=== PATIENT | female | born 1945 | race Caucasian/White ===

== ENCOUNTER → 2017-12-24 | Outpatient (CLI) | payer MEDICARE ==
--- NOTE | 2017-12-24 16:35 | BD ---
EXAMINATION TYPE: Axial Bone Density DATE OF EXAM: 12/24/2017 COMPARISON: 07/12/2015 CLINICAL HISTORY: 72-year-old female with known osteopenia Height: 60.5 IN Weight: 181.6 LBS FRAX RISK QUESTIONS: Family History (Parent hip fracture): YES MOTHER History of Fracture in Adulthood: YES RT WRIST AGE 57 Secondary Osteoporosis: 3. Menopause before 45: YES AGE 40 RISK FACTORS HISTORY OF: History of Wrist Fracture: RT WRIST When: AGE 57 Active: YES Postmenopausal woman: AGE 45 Take estrogen and/or progesterone medications: NOT NOW How long: TOOK HORMONES FOR 6 MONTHS AT AGE 40 MEDICATIONS: Thyroid Medications: YES Which medication: Levothyroxine How Lon YRS Additional Medications: LEVOTHYROXINE, LIPITOR, IMIPRAMINE, EXAM MEASUREMENTS: Bone mineral densitometry was performed using the [employer] System. Bone mineral density as measured about the Lumbar spine is: ----- L1-L4(G/cm2): 1.026 T Score Values are as follows: ----- L2: -2.3 ----- L3: -1.1 ----- L4: -0.6 ----- L1-L4: -1.3 Bone mineral density has: Increased 1.1% since study of: 07/12/2015 Bone mineral density about the R hip (g/cm2): 0.705 Bone mineral density about the L hip (g/cm2): 0.704 T Score values are as follows: -----R Neck: -2.4 -----L Neck: -2.4 -----R Total: -1.7 -----L Total: -1.8 Bone mineral density has: Increased 0.3% since study of: 07/12/2015 IMPRESSION: Osteopenia (T Score between -2.5 and -1). There is slightly increased risk of fracture and the patient may be considered for treatment. Re-Screen 2-5 years. NOTE: T-SCORE=SD OF THE YOUNG ADULT MEAN.
--- NOTE | 2017-12-26 09:43 | MM ---
Reason for exam: screening (asymptomatic). Last mammogram was performed 2 years and 5 months ago. History: Patient is postmenopausal, has history of endometrial cancer at age 40, and had first child at age 37. Physical Findings: A clinical breast exam by your physician is recommended on an annual basis and results should be correlated with mammographic findings. MG 3D Screening Mammo W/Cad Bilateral CC and MLO view(s) were taken. Prior study comparison: July 12, 2015, bilateral MG 3d screening mammo w/cad. June 03, 2013, bilateral digital screening mammo w/CAD. There are scattered fibroglandular densities. No significant changes when compared with prior studies. ASSESSMENT: Negative, BI-RAD 1 RECOMMENDATION: Routine screening mammogram of both breasts in 1 year.
== END | disposition home or self-care (01) ==
LOC: RADMAMWWP 11:41
PROVIDERS: ATTEND Internal Medicine
DX: Z12.31 Encounter for screening mammogram for malignant neoplasm of breast (principal); M85.80 Other specified disorders of bone density and structure, unspecified site
CPT/HCPCS: 77063; 77067; 77080

== ENCOUNTER → 2019-04-22 | Outpatient (CLI) | payer MEDICARE ==
--- NOTE | 2019-04-23 09:08 | MM ---
Reason for exam: screening (asymptomatic). Last mammogram was performed 1 year and 4 months ago. History: Patient is postmenopausal, has history of endometrial cancer at age 40, and had first child at age 37. Physical Findings: A clinical breast exam by your physician is recommended on an annual basis and results should be correlated with mammographic findings. MG 3D Screening Mammo W/Cad Bilateral CC and MLO view(s) were taken. Prior study comparison: December 24, 2017, bilateral MG 3d screening mammo w/cad. July 12, 2015, bilateral MG 3d screening mammo w/cad. The breast tissue is heterogeneously dense. This may lower the sensitivity of mammography. Benign appearing bilateral calcifications. No suspicious abnormality. No significant changes when compared with prior studies. ASSESSMENT: Benign, BI-RAD 2 RECOMMENDATION: Routine screening mammogram of both breasts in 1 year.
== END | disposition home or self-care (01) ==
LOC: RADMAMWWP 14:53
PROVIDERS: ATTEND Family Medicine
DX: Z12.31 Encounter for screening mammogram for malignant neoplasm of breast (principal)
CPT/HCPCS: 77063; 77067

== ENCOUNTER → 2020-06-29 | Outpatient (CLI) | payer MEDICARE ==
--- NOTE | 2020-06-29 16:12 | BD ---
EXAMINATION TYPE: Axial Bone Density DATE OF EXAM: 06/29/2020 COMPARISON: 12/24/2017 CLINICAL HISTORY: Z 78.0 Height: 60.7 IN Weight: 188 LBS FRAX RISK QUESTIONS: Family History (Parent hip fracture): MOTHER History of Fracture in Adulthood: AGE 57 RT WRIST Secondary Osteoporosis: 3. Menopause before 45: PARTIAL HYST AGE 40 RISK FACTORS HISTORY OF: History of Wrist Fracture: RT WRIST AGE 57 Active: MODERATE Diet low in dairy products/other sources of calcium: YES Postmenopausal woman: PARTIAL HYST AGE 40 Take estrogen and/or progesterone medications: NOT NOW TOOK FOR 1 YEAR MEDICATIONS: Thyroid Medications: YES Which medication: Levothyroxine How Lon+ YEARS Additional Medications: VIT D, LEVOTHYROXINE, CHOLESTEROL MEDS, IMIMIPRAMINE, Additional History: CERVICAL CANCER NO RADIATION OR CHEMO EXAM MEASUREMENTS: Bone mineral densitometry was performed using the [employer] System. Bone mineral density as measured about the Lumbar spine is: ----- L1-L4(G/cm2): 1.041 T Score Values are as follows: ----- L2: -2.0 ----- L3: -0.7 ----- L4: -0.8 ----- L1-L4: -1.2 Bone mineral density has: Increased 0.9% since study of: 12/24/2017 Bone mineral density about the R hip (g/cm2): 0.705 Bone mineral density about the L hip (g/cm2): 0.709 T Score values are as follows: -----R Neck: -2.4 -----L Neck: -2.4 -----R Total: -1.7 -----L Total: -1.7 Bone mineral density has: Increased 0.5% since study of: 12/24/2017 IMPRESSION: Osteopenia (T Score between -2.5 and -1). There is slightly increased risk of fracture and the patient may be considered for treatment. Re-Screen 2-5 years. NOTE: T-SCORE=SD OF THE YOUNG ADULT MEAN.
--- NOTE | 2020-06-30 11:17 | MM ---
Reason for exam: screening (asymptomatic). Last mammogram was performed 1 year and 2 months ago. History: Patient is postmenopausal, has history of endometrial cancer at age 40, has history of other cancer at age 40, and had first child at age 37. Physical Findings: A clinical breast exam by your physician is recommended on an annual basis and results should be correlated with mammographic findings. MG 3D Screening Mammo W/Cad Bilateral CC and MLO view(s) were taken. Prior study comparison: April 22, 2019, bilateral MG 3d screening mammo w/cad. December 24, 2017, bilateral MG 3d screening mammo w/cad. The breast tissue is heterogeneously dense. This may lower the sensitivity of mammography. Finding #1: There is a 5 mm circumscribed oval mass in the upper quadrant, anterior position of the right breast. Finding #2: There are typically benign round calcifications in both breasts. Increase in size since April 22, 2019 and December 24, 2017. ASSESSMENT: Incomplete: need additional imaging evaluation, BI-RAD 0 RECOMMENDATION: Ultrasound of the right breast. [facility] will attempt to contact patient to return for ultrasound.
== END | disposition home or self-care (01) ==
LOC: RADMAMWWP 08:40
PROVIDERS: ATTEND Family Medicine
DX: Z12.31 Encounter for screening mammogram for malignant neoplasm of breast (principal); M85.80 Other specified disorders of bone density and structure, unspecified site; Z78.0 Asymptomatic menopausal state
CPT/HCPCS: 77063; 77067; 77080

== ENCOUNTER → 2020-07-09 | Outpatient (CLI) | payer MEDICARE ==
--- NOTE | 2020-07-09 14:06 | USB ---
Reason for exam: additional evaluation requested from abnormal screening. History: Patient is postmenopausal, has history of endometrial cancer at age 40, has history of other cancer at age 40, and had first child at age 37. Physical Findings: Nurse did not find any significant physical abnormalities on exam. US Breast Workup Limited RT Technologist: Mervat Dahl Right limited breast ultrasound including focal area of concern, retroareolar and axilla demonstrates a 0.3 x 0.3 x 0.3cm circular, cystic lesion at 9 o'clock and a duct at the posterior nipple. These results were verbally communicated with the patient and result sheet given to the patient on 07/09/20. ASSESSMENT: Probably benign, BI-RAD 3 RECOMMENDATION: Ultrasound of the right breast in 6 months.
== END | disposition home or self-care (01) ==
LOC: RADUSWWP 12:45
PROVIDERS: ATTEND Family Medicine
DX: R92.8 Other abnormal and inconclusive findings on diagnostic imaging of breast (principal)

== ENCOUNTER → 2020-08-17 | Outpatient (CLI) | payer MEDICARE | END | disposition home or self-care (01) | LOC: LABWHC1 10:15 | PROVIDERS: ATTEND Nurse Practitioner Family | DX: U07.1 COVID-19 (principal) | CPT/HCPCS: 36415; 86769 ==

== ENCOUNTER → 2020-12-14 | Outpatient (CLI) | payer MEDICARE ==
--- NOTE | 2020-12-15 09:37 | USB ---
Reason for exam: follow-up at short interval from prior study. History: Patient is postmenopausal, has history of endometrial cancer at age 40, has history of other cancer at age 40, and had first child at age 37. Physical Findings: Nurse did not find any significant physical abnormalities on exam. US Breast Limited RT Right limited breast ultrasound including focal area of concern, retroareolar and axilla demonstrates a 0.3 x 0.2 x 0.3cm oval, cystic lesion at 9 o'clock, a 0.3 x 0.4 x 0.4cm oval, taller than wide, complex, cystic lesion at 11 o'clock, probably benign, correlates with mammographic nodule, retroareolar ductal dilation at the posterior nipple and a 1.4 x 1.2 x 0.7cm reactive appearing lymph node at the axilla. These results were verbally communicated with the patient and result sheet given to the patient on 12/14/20. ASSESSMENT: Probably benign, BI-RAD 3 RECOMMENDATION: Follow-up diagnostic mammogram of both breasts in 6 months. Ultrasound of the right breast in 6 months. Back on schedule.
== END | disposition home or self-care (01) ==
LOC: RADUSWWP 08:41
PROVIDERS: ATTEND Family Medicine
DX: N60.01 Solitary cyst of right breast (principal); Z78.0 Asymptomatic menopausal state; Z85.42 Personal history of malignant neoplasm of other parts of uterus

== ENCOUNTER → 2021-06-17 | Outpatient (CLI) | payer MEDICARE ==
--- NOTE | 2021-06-20 11:49 | MM ---
Reason for exam: additional evaluation requested from prior study. Last mammogram was performed 1 year ago. History: Patient is postmenopausal, has history of endometrial cancer at age 40, has history of other cancer at age 40, and had first child at age 37. Physical Findings: Nurse did not find any significant physical abnormalities on exam. MG 3D Diag Mammo W/Cad ANGEL Bilateral CC and MLO view(s) were taken. Prior study comparison: June 29, 2020, bilateral MG 3d screening mammo w/cad. April 22, 2019, bilateral MG 3d screening mammo w/cad. December 24, 2017, bilateral MG 3d screening mammo w/cad. The breast tissue is heterogeneously dense. This may lower the sensitivity of mammography. There is chronic nodularity in the right breast. No significant new findings when compared with previous films. These results were verbally communicated with the patient and result sheet given to the patient on 06/17/21. ASSESSMENT: Benign, BI-RAD 2 RECOMMENDATION: Routine screening mammogram of both breasts in 1 year.
--- NOTE | 2021-06-20 11:52 | USB ---
Reason for exam: follow-up at short interval from prior study. History: Patient is postmenopausal, has history of endometrial cancer at age 40, has history of other cancer at age 40, and had first child at age 37. US Breast Limited RT Right limited breast ultrasound including focal area of concern, retroareolar and axilla demonstrates a 0.3 x 0.3 x 0.2cm oval, cystic lesion at 9 o'clock, a 0.5 x 0.4 x 0.4cm oval, cystic lesion at 10 o'clock and a 0.4 x 0.3 x 0.4cm taller than wide, mixed, hypoechoic lesion at 11 o'clock, not a cyst, biopsy recommended. These results were verbally communicated with the patient and result sheet given to the patient on 06/17/21. ASSESSMENT: Suspicious, BI-RAD 4 RECOMMENDATION: Ultrasound core biopsy of the right breast. Called Dr. Barker's office with mammographic findings and has scheduled an appointment for the patient for 07/20/21 at 11:[address] Valenzuela. Biopsy scheduled for 07/13/21 at 10:30. PRELIMINARY REPORT CALLED AND FAXED TO DR. VALENZUELA ON 06/20/21.
== END | disposition home or self-care (01) ==
LOC: RADMAMWWP 13:05
PROVIDERS: ATTEND Family Medicine
DX: R92.8 Other abnormal and inconclusive findings on diagnostic imaging of breast (principal); N60.01 Solitary cyst of right breast; Z78.0 Asymptomatic menopausal state
CPT/HCPCS: 77066; 76642; G0279; 77062

== ENCOUNTER → 2021-07-13 | Day surgery (SDC) | payer MEDICARE ==
[2021-07-13 09:22] VITALS: RESP 16; TEMP 98.6
[2021-07-13 10:31] VITALS: BP 132/83; PULSE 83
--- NOTE | 2021-07-13 11:35 | USB ---
EXAMINATION TYPE: US biopsy breast VAD RT, MG diagnostic mammo RT wo CAD DATE OF EXAM: 07/13/2021 CLINICAL HISTORY: R92.8 Abnormal mammogram. TECHNIQUE: Ultrasound guided core biopsy of right 11 o'clock breast. COMPARISON: NONE FINDINGS: The procedure of ultrasound guided core biopsy was explained to the patient. Benefits, alternatives, and risks were discussed. An informed consent was then obtained. The patient was placed in supine positioning for imaging and for the procedure. The overlying skin was prepped and draped in usual sterile fashion. Lidocaine buffered with bicarbonate was used as anesthetic into the skin and subcutaneous tissue up to area of concern in the right 11 o'clock breast. Under ultrasound guidance, a 12-gauge vacuum assisted biopsy gun device was used to obtain 2 core samples. The lesion was no longer visible. Following this, a biopsy clip was left in lesion. Post procedure mammogram demonstrates appropriate clip placement. The patient tolerated the procedure well without any immediate complication. The patient was kept in the radiology department for short stay after the procedure and then discharged home in stable condition. IMPRESSION: Successful, uncomplicated ultrasound guided core biopsy of area of concern in the right 11 o'clock breast, full pathology results to follow. 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 See Surgical Pathology Cancer Case Summary and Comment. Recommendation Surgical consult of the right breast. REMINGTOND
== END ==
LOC: RADUSWWP 09:06
PROVIDERS: ATTEND Student in an Organized Health Care Education/Training Program
DX: D05.11 Intraductal carcinoma in situ of right breast (principal)
CPT/HCPCS: 88305; 88342; 88341; 77065; 19083; A4648; J2001

== ENCOUNTER → 2021-10-14 | Outpatient (CLI) | payer MEDICARE | END | disposition home or self-care (01) | LOC: LABPAT 10:11 | PROVIDERS: ATTEND Orthopaedic Surgery | DX: Z01.812 Encounter for preprocedural laboratory examination (principal); M17.12 Unilateral primary osteoarthritis, left knee; Z22.322 Carrier or suspected carrier of Methicillin resistant Staphylococcus aureus | CPT/HCPCS: 87070 ==

== ENCOUNTER 2021-12-06 08:23 | Inpatient (IN) | payer MEDICARE ==
[2021-12-01 12:46] VITALS: BMI 32.2
--- NOTE | 2021-12-05 11:36 | HP ---
HISTORY AND PHYSICAL CHIEF COMPLAINT: Left knee pain. HISTORY OF PRESENT ILLNESS: The patient is a 76-year-old retired female who presents with left knee pain for the past several years, worsening recently. She is having pain with walking, stairs, and standing. She notes her knee cheryl and gives out. She notes intermittent swelling. She has tried medications in addition to previous injections, with minimal relief. She notes significant limitation despite conservative measures. PAST MEDICAL HISTORY: Significant for hyperlipidemia, hypothyroidism, and breast cancer. PAST SURGICAL HISTORY: Significant for appendectomy, hysterectomy, bilateral knee surgery, tonsillectomy, lumpectomy. CURRENT MEDICATIONS: Atorvastatin, Imipramine, levothyroxine, Tylenol, meloxicam. Anastrozole. ALLERGIES: She denies drug allergies. FAMILY HISTORY: Negative. SOCIAL HISTORY: Negative for current tobacco or alcohol use. REVIEW OF SYSTEMS: 16-point review of systems is otherwise reviewed and noncontributory. PHYSICAL EXAMINATION: On examination, the patient is approximately 5 foot 3, 188 pounds of endomorphic habitus. HEENT exam is nonfocal. NECK is supple. She has painless passive motion of her left hip. Straight-leg raise is negative. Active motion left knee: Minus 15 to 105 degrees of flexion. She has a mild effusion. She is tender about the lateral joint line. Collaterals are stable. Melody is negative. Yo's is equivocal. She has genu valgum alignment. She has an antalgic gait pattern. Her distal neurovascular exam appears intact in the left lower extremity. Previous weightbearing notch, lateral and Merchant views left knee obtained in the office shows severe lateral and patellofemoral compartment narrowing with [id number] changes and subchondral sclerosis. 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 RECOMMENDATIONS: I talked to the patient at length regarding her condition along with treatment options. At this point, she remains quite limited because of pain related to her osteoarthrosis despite previous conservative measures. After thorough discussion, she opts to proceed with surgery. We will plan to proceed with left total knee arthroplasty. We will institute DVT prophylaxis postoperatively. Risks and benefits were discussed at length in layman's terms. MMODL / IJN: [id number] /
[~2021-12-06 08:23] MED LIST: ACETAMINOPHEN TAB 500 MG TAB PO PRN; DEXAMETHASONE SOD PHOSPHATE 4 MG/ML 1 ML VIAL IV ONE; HYDROmorphone 0.5 MG/0.5 ML SYRINGE IVP PRN; LIDOCAINE 1% (10MG/ML) FOR IV START INTRADERMA PRN; MELOXICAM 7.5 MG TAB PO PRN; MIDAZOLAM 2 MG/2 ML VIAL IV PRN; ONDANSETRON 4 MG/2 ML VIAL IVP ONE; TRANEXAMIC ACID IN NACL,ISO-OS 1,000 MG in SALINE 1 100ML.BAG IVPB PRN
[2021-12-06] MEDS: LACTATED RINGERS 1,000 ML IV SCH ×2 (09:05→10:33)
[2021-12-06] MEDS ORDERED: ROPIVACAINE 0.2%-NS ON-Q PUMP 1,090 MG, EMPTY PAIN BALL 1 EACH MISCELLANE PRN (09:47)
--- NOTE | 2021-12-06 09:48 | P.ANPRN ---
Procedure Note - Anesthesia - Nerve Block Performed Left Adductor Canal Infusion Time Out Performed: Yes Date of Procedure: 12/06/21 Procedure Start Time: Procedure Stop Time: Location of Patient: PreOp Indication: Acute Post-Operative Pain, Analgesia, Requested by Surgeon Sedation Type: Sedate with meaningful contact maintained Preparation: Sterile Prep Position: Supine Catheter: Indwelling Needle Types: Pajunk Needle Gauge: 20 Ultrasound used to visualize needle placement: Yes Ultrasound used to observe medication spread: Yes Injectate: 0.5% Ropivacaine (see comment for volume) (20) Blood Aspirated: No Pain Paresthesia on Injection Noted: No Resistance on Injection: Normal Image Stored and Saved: Yes Events: Uneventful and Well Tolerated
[2021-12-06] MEDS ORDERED: fentaNYL (PF) 50 MCG/ML 2 ML AMP ONE (10:34)
[2021-12-06] MEDS ORDERED: MIDAZOLAM 2 MG/2 ML VIAL ONE (10:34)
[2021-12-06] MEDS ORDERED: PROPOFOL 10 MG/ML 20 ML VIAL IV ONE (10:34)
[2021-12-06] MEDS ORDERED: GLYCOPYRROLATE 0.2 MG/ML 2 ML VIAL ONE (10:34)
[2021-12-06] MEDS ORDERED: TRANEXAMIC ACID IN NACL,ISO-OS 1,000 MG/100 ML BAG ONE (10:34)
[2021-12-06] MEDS ORDERED: LIDOCAINE 2% INJ 20 MG/ML (2 ML VIAL) ONE (10:34)
[2021-12-06] MEDS ORDERED: ceFAZolin 1,000 MG in SODIUM CHLORIDE 0.9% 1,000 ML IRRIGATION ONE (11:01)
[2021-12-06] MEDS ORDERED: LACTATED RINGERS 1,000 ML IV ONE (12:11)
[2021-12-06] MEDS ORDERED: NALOXONE 0.4 MG/ML 1 ML VIAL IV PRN (12:18)
[2021-12-06] MEDS ORDERED: HYDROcodone/APAP 5-325MG 1 EACH TAB PO PRN (12:18)
[2021-12-06] MEDS ORDERED: HYDROmorphone 0.5 MG/0.5 ML SYRINGE IVP PRN (12:18)
--- NOTE | 2021-12-06 12:42 | P.OP ---
Date of Procedure: 12/06/21 Preoperative Diagnosis: Left knee severe tricompartmental osteoarthrosis Postoperative Diagnosis: Same Procedure(s) Performed: Left total knee arthroplastycementedposterior stabilized Implants: Depuy Attune size 5 cemented femoral component, size 5 cemented tibial implant, 11 mm articular surface, 32 mm cemented patellar component. This is a posterior stable implant. Anesthesia: regional, spinal Surgeon: Juan C Arcos Curriculum Developer #1: Ashu Wilson Estimated Blood Loss (ml): 50 Pathology: other (Bone fragments) Condition: stable Disposition: PACU Indications for Procedure: Patient is a 76-year-old female who presents with progressive left knee pain secondary to osteoarthrosis despite conservative measures. A discussion of the risks and benefits of continued conservative measures versus surgical intervention was made with the patient. She opted to proceed with surgery. Operative risks to include infection, neurovascular injury, development of blood clots, fracture, possible component loosening/failure need for subsequent procedures was discussed. Informed consent was obtained. Operative Findings: As below Description of Procedure: The patient was brought to the operating room, and after induction of spinal anesthesia the left lower extremity was prepped and draped in a normal fashion. The tourniquet was inflated to 270 mm marker. A longitudinal incision extending 3 finger breaths above the superior pole of patella extending to the medial aspect the tibial tubercle was then made. The skin and subcutaneous tissues were divided sharply. Electrocautery was used for hemostasis. A medial parapatellar arthrotomy was performed. The medial soft tissues to include the superficial and deep portions of the medial collateral ligament were elevated subperiosteally. The patella was everted. A portion of the retropatellar fat pad was excised sharply. The anterior cruciate ligament was sacrificed. Blunt retractors were placed. A starting hole was made in the distal femur 1 cm anterior to the posterior cruciate ligament origin. An intramedullary femoral guide was then inserted planning on 5 valgus distal cut with 9 mm distal resection. The cutting block was pinned in place. The distal cut was then made. The posterior referencing sizing guide was utilized. I felt size 5 narrow was most appropriate. 3 of external rotation was built into the system and verified off the trans-epicondylar axis and the posterior condyles. The cutting block was pinned in place. The anterior, posterior, and chamfer cuts th en made. Bone fragments were removed. The intercondylar guide was placed and the notch cut was made with a sagittal saw. The bone block was removed in one fragment. The trial component was then placed. There is good anterior to posterior and medial to lateral fit. The distal peg holes were drilled. The trial component was removed. Attention was then paid towards preparing the proximal femur. An extra medullary guide was utilized in line with the tibial shaft and second metatarsal distally. I planned on 4 mm resection from the medial compartment. The cutting block was pinned in place. The proximal tibial cut was then made. The bone was removed in one fragment. The remnants of the medial and lateral menisci were excised at the capsular junction with electrocautery. The tibia sized most appropriately at size 5. The trial femoral and tibial components were placed along with a 11 mm articular surface. I was able to obtain full flexion and extension with internal and external rotation. After several flexion and extension cycles, the tibial rotation was marked with electrocautery line with the medial one third of the tibial tubercle. Attention was then paid towards preparing the patella. A patella reamer was utilized taking stem to 14 mm of bone stock. A good flush cut was made. The patella sized most appropriately 32 mm. The peg holes were drilled. The trial components placed. I had good patellofemoral tracking with no hands technique. The trial components were then removed. The tibia was prepared in the appropriate rotation with appropriate drill and keel punch. The posterior osteophytes were removed with a curved osteotome. The flexion and extension gaps were checked and felt to be symmetric at 11 mm. A trial components were then removed. The bony surfaces were prepared with pulsatile lavage and dried. The tibial component was then cemented place was fully seated. Excess cement was removed. The femoral component cemented place and was fully seated. Excess cement was removed. The trial 11 mm articular surface was placed and the knee was put in full extension. The patella component was cemented place. After the cement had sufficiently hardened, the knee was again taken through a range of motion. Again I was able to obtain full flexion and extension with varus and valgus stress. The trial 11 mm articular surface was removed and the final one inserted. This was fully seated. Care was taken to avoid any soft tissue interposition. Pulsatile lavage was again utilized. The medial parapatellar arthrotomy was closed with #2 Ethibond suture. The tourniquet was deflated with approximately 60 minutes total tourniquet time. Final hemostasis was obtained with the cautery. There was minimal bleeding therefore a deep drain was not placed. The subcutaneous tissues were reapproximated with interrupted 2-0 Vicryl sutures. The skin was reapproximated with 3-0 subcuticular strata fix suture. Skin tape and adhesive was applied. A sterile dressing was applied. The patient was awoken from sedation and transferred to recovery room in good condition. Blood loss was estimated at 50 mL. No complications were incurred. Sponge and needle counts were correct at the end of the case. Ashu PALOMARES assisted during the major components of this case to include exposure, bone resection, implantation, and closure.
--- NOTE | 2021-12-06 13:03 | XR ---
EXAMINATION TYPE: XR knee limited LT DATE OF EXAM: 12/06/2021 COMPARISON: NONE TECHNIQUE: Two views submitted HISTORY: Post op FINDINGS: There is a prosthetic knee in near anatomic alignment. There is soft tissue edema and emphysema. IMPRESSION: 1. Postoperative change. Appears in near-anatomic alignment
[2021-12-06] MEDS: HYDROcodone/APAP 7.5-325MG 1 EACH TAB PO PRN (17:48)
[2021-12-06] MEDS: HYDROmorphone 0.5 MG/0.5 ML SYRINGE IVP PRN ×2 (19:23→22:14)
[2021-12-06] MEDS: SENNOSIDES-DOCUSATE SODIUM 1 EACH TAB PO SCH (19:23)
[2021-12-06] MEDS: LEVOTHYROXINE 50 MCG TAB PO SCH ×2 (22:14→22:18)
[2021-12-07] MEDS: HYDROcodone/APAP 7.5-325MG 1 EACH TAB PO PRN ×3 (00:46→19:49)
--- NOTE | 2021-12-07 01:47 | P.CONS ---
History of Present Illness - Reason for Consult Consult date: 12/06/21 Postoperative medical management Requesting physician: Juan C Arcos - Chief Complaint Left total knee arthroplasty - History of Present Illness 76-year-old female with hyperlipidemia and breast cancer hypothyroid Patient comes in for scheduled left total knee arthroplasty due to severe osteoarthritis resulting in difficulties with activities of daily living patient reports frequent buckling and giving out of her knee makes it difficult claims stairs and walk long distances or even stand for long time. Patient tolerated procedure well no observed immediate postoperative, medications denies any chest pain or trouble breathing denies any excessive pain pain is well tolerated and controlled she tolerated by mouth intake she has no active complaints at this time Review of Systems Pertinent positives as noted in HPI. All other systems were reviewed and are negative Past Medical History Past Medical History: Cancer, Hearing Disorder / Deafness, Hyperlipidemia, Osteoarthritis (OA), Skin Disorder, Thyroid Disorder Additional Past Medical History / Comment(s): Hard of hearing. Hx right breast cancer - lumpectomy and 5 radiation treatments (last treatment 3 weeks ago). Hypothyroidism, varicose vein, Osteoporosis, Vitiligo. Bladder spasms due to Chronic Interstitial Cystitis. History of Any Multi-Drug Resistant Organisms: None Reported Past Surgical History: Breast Surgery, Cholecystectomy, Hysterectomy Additional Past Surgical History / Comment(s): Hysterectomy with cervix removal (bilateral ovaries retained), bilateral cataract surgery, right breast lumpectomy. Past Anesthesia/Blood Transfusion Reactions: No Reported Reaction Additional Past Anesthesia/Blood Transfusion Reaction / Comm: No blood transfusions to date (12/01/21). Past Psychological History: No Psychological Hx Reported Smoking Status: Never smoker Past Alcohol Use History: None Reported Past Drug Use History: None Reported - Past Family History Father Family Medical History: No Reported History Additional Family Medical History / Comment(s): at age 81 from minor health issues r/t age. Mother Family Medical History: No Reported History Additional Family Medical History / Comment(s): at age 81 from minor health issues r/t age. Medications and Allergies Home Medications Medication Instructions Recorded Confirmed Type Atorvastatin [Lipitor] 20 mg PO QAM 07/05/21 12/01/21 History Imipramine [Tofranil] 25 mg PO TID 07/05/21 12/01/21 History Levothyroxine Sodium [Synthroid] 50 mcg PO SUTUWETHSA 07/05/21 12/01/21 History Anastrozole 1 mg PO QAM 12/01/21 12/01/21 History Cholecalciferol [Vitamin D3 (25 2,000 units PO QAM 12/01/21 12/06/21 History Mcg = 1000 Iu)] Levothyroxine Sodium [Synthroid] 100 mcg PO MOFR 12/01/21 12/01/21 History Allergies Allergy/AdvReac Type Severity Reaction Status Date / Time No Known Allergies Allergy Verified 12/06/21 08:48 Physical Exam Vitals: Vital Signs Temp Pulse Pulse Pulse Resp BP Pulse Ox 12/06/21 19:25 98.8 F 91 14 151/81 96 12/06/21 18:36 97.6 F 66 20 136/80 98 12/06/21 16:40 61 16 169/80 97 12/06/21 16:25 100 16 159/91 99 12/06/21 15:45 54 L 16 161/97 97 12/06/21 15:30 57 L 16 150/88 97 12/06/21 15:15 59 L 16 153/84 96 12/06/21 14:59 52 L 16 143/82 98 12/06/21 14:37 56 L 16 141/77 98 12/06/21 14:07 56 L 16 134/75 97 12/06/21 13:52 63 16 134/70 97 12/06/21 13:37 56 L 16 147/71 96 12/06/21 13:22 57 L 16 139/70 99 12/06/21 13:07 61 16 130/74 98 12/06/21 12:52 63 16 120/71 97 12/06/21 12:36 97.0 F L 66 10 L 116/69 100 12/06/21 09:43 63 16 153/82 99 12/06/21 08:57 98.3 F 66 16 163/78 98 Intake and Output 12/06/21 12/06/21 12/06/21 06:59 14:59 22:59 Intake Total 1101 450 Output Total 50 Balance 1051 450 Intake: IV 1101 250 Oral 200 Output: Estimated Blood Loss 50 Other: Voiding Method External Catheter # Voids 1 Weight 85.3 kg 85.3 kg Constitutional: No acute distress, conversant, pleasant Eyes: Anicteric sclerae, moist conjunctiva, Pupils equal round reactive to light ENMT: NC/AT Oropharynx clear, no erythema, or exudates Neck: Supple, FROM, no masses, or JVD No carotid bruits No thyromegaly Lungs: Clear to auscultation Clear to percussion Normal respiratory effort, no accessory muscle use Cardiovascular: Heart regular in rate and rhythm, No murmurs, gallops, or rubs No peripheral edema Abdominal: Soft Nontender, no guarding, rebound or rigidity Abdomen moving with respiration Normoactive bowel sounds No hepatomegaly, No splenomegaly No palpable mass No abdominal wall hernia noted Skin: Normal temperature, tone, texture, turgor No induration No subcutaneous nodules No rash, lesions No ulcers Extremities: No digital cyanosis No clubbing Pedal pulses intact and symmetrical Radial pulses intact and symmetrical No calf tenderness Psychiatric: Alert and oriented to person, place and time Appropriate affect fair judgement Neuro Muscles Strength 5/5 in all 4 extremities with limitation over the left lower extremity due to recent surgery Sensation to light touch grossly present throughout Cranial nerves II-XII grossly intact No focal sensory deficits Assessment and Plan Assessment: Chronic conditions Hypothyroid continue with levothyroxine History of breast cancer continue with anastrozole Hyperlipidemia continue statin Status post left total knee arthroplasty postoperative day 0 Tolerated procedure well 50 prophylaxis pain management per surgical team Check CBC and CMP in a.m. Patient is stable from medical standpoint Thank you for allowing us to participate in the care of this patient. Do not hesitate to contact us with questions. Someone can be reached from the [facility] hospitalist group at all hours of the day at [phone].
[2021-12-07] MEDS: LEVOTHYROXINE 50 MCG TAB PO SCH (04:48)
[2021-12-07] MEDS: HYDROmorphone 0.5 MG/0.5 ML SYRINGE IVP PRN ×3 (04:49→14:13)
[2021-12-07] MEDS: LACTATED RINGERS 1,000 ML IV SCH (04:53)
--- NOTE | 2021-12-07 06:46 | P.PN ---
Progress Note - Text Progress Note Date: 12/07/21 POD 1 FROM TKR, Adductor canal catheter placed for post op pain, running at 8cc/hr. Pain over lateral knee and post knee. ant knee does not have pain. no lower ext weakness or numbness. able to stand. used 1 dose of PO & IV meds for analagesia. will be d/c with pain pump continued. godfrey enrique MD anesthesia.
[2021-12-07 06:54] LABS: African American GFR (CKD) 88 (>60 ml/min/1.73 sqM); Anion Gap 11 mmol/L; Blood Urea Nitrogen 17 mg/dL (7-17); Calcium 8.9 mg/dL (8.4-10.2); Carbon Dioxide 25 mmol/L (22-30); Chloride 105 mmol/L (98-107); Glucose 119 mg/dL (74-99); Non-African American GFR(CKD) 76 (>60 ml/min/1.73 sqM); Potassium 4.8 mmol/L (3.5-5.1); Sodium 141 mmol/L (137-145)
[2021-12-07 06:59] LABS: Basophils % (A) 0 %; Eosinophils % (A) 0 %; HCT 41.3 % (34.0-46.0); HGB 13.3 gm/dL (11.4-16.0); Lymphocytes # (A) 1.3 k/uL (1.0-4.8); Lymphocytes % (A) 10 %; MCH 29.4 pg (25.0-35.0); MCHC 32.3 g/dL (31.0-37.0); Mean Platelet Volume 8.3; Monocytes # (A) 1.3 k/uL (0-1.0); Monocytes % (A) 9 %; Neutrophils # (A) 11.4 k/uL (1.3-7.7); Neutrophils % (A) 81 %; Platelet Count 212 k/uL (150-450); RBC 4.53 m/uL (3.80-5.40); RDW 12.8 % (11.5-15.5); WBC 14.1 k/uL (3.8-10.6)
[2021-12-07] MEDS: IMIPRAMINE 25 MG TAB PO SCH ×3 (07:13→19:49)
[2021-12-07] MEDS: RIVAROXABAN 10 MG TAB PO SCH (07:13)
[2021-12-07] MEDS: ATORVASTATIN 20 MG TAB PO SCH (07:14)
[2021-12-07] MEDS: ANASTROZOLE 1 MG TAB PO SCH (07:14)
--- NOTE | 2021-12-07 09:26 | P.PN ---
Subjective Progress Note Date: 12/07/21 (delayed charting seen at 0930) Patient is a 76-year-old female with dyslipidemia, breast cancer, and hypothyroidism who presented for elective left total knee arthroplasty. Patient seen and examined at bedside. She is asking this and other day due to pain. She is concerned she has frequent urination related to her interstitial cystitis and she is worried about getting up and down to the bathroom. I have alerted her that I am unable to determine whether or not she can stay an additional day and that would be up to the discretion of orthopedic surgery. She denies any chest pain, shortness breath, nausea, vomiting General: nontoxic, no distress, appears at stated age Derm: warm, dry Head: atraumatic, normocephalic, symmetric Eyes: EOMI, no lid lag, anicteric sclera Mouth: no lip lesion, mucus membranes moist Cardiovascular: S1S2 reg, no murmur, positive posterior tibial pulse bilateral, Lungs: CTA bilateral, no rhonchi, no rales , no accessory muscle use Abdominal: soft, nontender to palpation, no guarding, no appreciable organomegaly Ext: no gross muscle atrophy, mild edema left leg, dressing in place over left knee, no contractures Neuro: CN II-XI grossly intact, no focal neuro deficits Psych: Alert, oriented, appropriate affect Assessment/plan: A 46-year-old female status post left total knee arthroplasty Leukocytosis, reactive -Repeat CBC in a.m. Dyslipidemia -Statin Hypothyroidism -Synthroid Patient is requesting to stay another day for pain management- alerted ortho Medically optimized for discharge at the discretion to ortho once pain control is optimized. Objective - Vital Signs Vital signs: Vital Signs Temp 98.3 F 12/07/21 08:00 Pulse 72 12/07/21 08:00 Resp 16 12/07/21 08:00 BP 102/64 12/07/21 08:00 Pulse Ox 94 L 12/07/21 08:00 FiO2 Intake & Output 12/06/21 12/07/21 12/07/21 18:59 06:59 18:59 Intake Total 1551 450 Output Total 50 300 Balance 1501 150 Weight 85.3 kg Intake: IV 1351 Oral 200 450 Output: Urine 300 Estimated Blood Loss 50 Other: Voiding Method External Catheter # Voids 1 1 1 - Labs CBC & Chem 7: 12/07/21 04:37 12/07/21 04:37 Labs: Abnormal Lab Results - Last 24 Hours (Table) 12/07/21 12/07/21 Range/Units 04:37 04:37 WBC 14.1 H (3.8-10.6) k/uL Neutrophils # 11.4 H (1.3-7.7) k/uL Monocytes # 1.3 H (0-1.0) k/uL Glucose 119 H (74-99) mg/dL
--- NOTE | 2021-12-07 12:46 | P.PN ---
Subjective Progress Note Date: 12/07/21 Principal diagnosis: Left knee osteoarthritis Patient was seen at bedside this morning resting comfortably sitting up in chair doing exercises. Patient says she has been up several times walking around the room since surgery yesterday. Patient says she does have a history of in terstitial cystitis for which she has great concern for at this time. Patient feels that she will not be ready to go home until Sunday. Patient says most of the knee pain she is having is at the front of her knee. Patient denies any radiation of pain. Patient says last night she did ice the knee which did help with some of pain/swelling. Patient says she has not used the incentive spirometer yet, which is at bedside. Patient does have a walker for home. Patient says her daughter can help her out when she is home. Patient denies chest pain, fever, shortness of breath, nausea, vomiting, change in vision, loss of bowel control. Objective - Vital Signs Vital signs: Vital Signs Temp 98.3 F 12/07/21 08:00 Pulse 72 12/07/21 08:00 Resp 16 12/07/21 08:00 BP 102/64 12/07/21 08:00 Pulse Ox 94 L 12/07/21 08:00 FiO2 Intake & Output 12/06/21 12/07/21 12/07/21 18:59 06:59 18:59 Intake Total 1551 450 Output Total 50 300 Balance 1501 150 Weight 85.3 kg Intake: IV 1351 Oral 200 450 Output: Urine 300 Estimated Blood Loss 50 Other: Voiding Method External Catheter # Voids 1 1 1 - Exam Left knee: Incision is clean, dry, and intact. The exofin fusion tape is in good condition. There is minimal soft tissue swelling and ecchymosis surrounding the medial and lateral aspects of the incision. Calf is soft, no tenderness with palpation. Plantar flexion, dorsiflexion, EHL, FHL are intact. Sensory exam to light touch throughout the extremity is intact, dorsal pedis pulses 2+. - Labs CBC & Chem 7: 12/07/21 04:37 12/07/21 04:37 Labs: Abnormal Lab Results - Last 24 Hours (Table) 12/07/21 12/07/21 Range/Units 04:37 04:37 WBC 14.1 H (3.8-10.6) k/uL Neutrophils # 11.4 H (1.3-7.7) k/uL Monocytes # 1.3 H (0-1.0) k/uL Glucose 119 H (74-99) mg/dL Assessment and Plan Assessment: 1. Left knee osteoarthritis Postoperative day #1 status post left total knee arthroplasty Plan: 1. Left knee osteoarthritis - surgery performed yesterday, 12/07/2021 - left total knee arthroplasty. Patient stable at bedside this morning. At this time patient is to continue working with physical therapy. Plan for discharge home with health services [facility], , 12/08/2021 2. Appreciate medical management 3. Pain management - [place]; Dilaudid only if necessary 4. DVT prophylaxis - Xarelto 5. GI prophylaxis - senna 6. PT/OT - weightbearing as tolerated with walker 7. Encourage incentive spirometer use 8. Discharge planning - home with health services [facility], , 12/08/2021 Time with Patient: Less than 30
[2021-12-07] MEDS: SENNOSIDES-DOCUSATE SODIUM 1 EACH TAB PO SCH (19:49)
[2021-12-07] MEDS: ACETAMINOPHEN TAB 325 MG TAB PO PRN (23:31)
[2021-12-08] MEDS: HYDROcodone/APAP 7.5-325MG 1 EACH TAB PO PRN ×3 (05:39→20:12)
[2021-12-08] MEDS: LEVOTHYROXINE 50 MCG TAB PO SCH (05:40)
[2021-12-08] MEDS: RIVAROXABAN 10 MG TAB PO SCH (08:01)
[2021-12-08] MEDS: ANASTROZOLE 1 MG TAB PO SCH (08:02)
[2021-12-08] MEDS: IMIPRAMINE 25 MG TAB PO SCH ×3 (08:02→20:12)
[2021-12-08] MEDS: ATORVASTATIN 20 MG TAB PO SCH (08:02)
--- NOTE | 2021-12-08 12:13 | P.PN ---
Subjective Progress Note Date: 12/08/21 Principal diagnosis: Status post left total knee arthroplasty Patient was evaluated today at bedside, she is resting in her hospital chair. Patient states she is doing slightly better than yesterday. Patient is still requiring some assistance to get up and use the restroom. She states that the pain does come and go, the medication seem to be helping better today. She is very set on being discharged home tomorrow. She currently denies any headaches, lightheadedness, chest pain or shortness Objective - Vital Signs Vital signs: Vital Signs Temp 98.5 F 12/08/21 07:55 Pulse 81 12/08/21 08:00 Resp 18 12/08/21 08:00 BP 138/84 12/08/21 07:55 Pulse Ox 96 12/08/21 07:55 FiO2 Intake & Output 12/07/21 12/08/21 12/08/21 18:59 06:59 18:59 Intake Total 1500 650 Balance 1500 650 Intake: Oral 1500 650 Other: Voiding Method Toilet Toilet Toilet External Catheter External Catheter # Voids 1 - Exam Left lower extremity: Incision is clean, dry, and intact. The exofin fusion tape is in good condition. There is minimal soft tissue swelling and ecchymosis surrounding the medial and lateral aspects of the incision. Calf is soft, no tenderness with palpation. Plantar flexion, dorsiflexion, EHL, FHL are intact. Sensory exam to light touch throughout the extremity is intact, dorsal pedis pulses 2+. - Labs CBC & Chem 7: 12/07/21 04:37 12/07/21 04:37 Assessment and Plan Assessment: Postoperative day #2 status post left total knee arthroplasty Plan: Pain control, continue with oral medication. Plan for discharge home on [place] DVT prophylaxis, continue Xarelto, we'll likely change to Eliquis 2.5 mg twice a day at discharge Wound care instructions discussed, she'll keep incision covered and dry while showering Icing and elevating techniques discussed Home health care after discharge Medical recommendations Discharge planning: Planning for discharge home on 12/09/2021 Time with Patient: Less than 30
--- NOTE | 2021-12-08 17:01 | P.PN ---
Subjective Progress Note Date: 12/08/21 (delayed charting seen at 0940) Patient is a 76-year-old female with dyslipidemia, breast cancer, and hypothyroidism who presented for elective left total knee arthroplasty. Patient seen and examined at bedside. She again only wants to discuss that she needs to stay because she needs to She denies any chest pain, shortness breath, nausea, vomiting General: nontoxic, no distress, appears at stated age Derm: warm, dry Head: atraumatic, normocephalic, symmetric Eyes: EOMI, no lid lag, anicteric sclera Mouth: no lip lesion, mucus membranes moist Cardiovascular: S1S2 reg, no murmur, positive posterior tibial pulse bilateral, Lungs: CTA bilateral, no rhonchi, no rales , no accessory muscle use Abdominal: soft, nontender to palpation, no guarding, no appreciable organomegaly Ext: no gross muscle atrophy, mild edema left leg, dressing in place over left knee, no contractures Neuro: CN II-XI grossly intact, no focal neuro deficits Psych: Alert, oriented, appropriate affect Assessment/plan: A 46-year-old female status post left total knee arthroplasty Leukocytosis, reactive -Repeat CBC in a.m. Dyslipidemia -Statin Hypothyroidism -Synthroid Medically optimized for discharge at the discretion to ortho. Will sign off please reconsult as needed. Objective - Vital Signs Vital signs: Vital Signs Temp 98.3 F 12/08/21 14:00 Pulse 84 12/08/21 14:00 Resp 18 12/08/21 14:00 BP 145/83 12/08/21 14:00 Pulse Ox 96 12/08/21 14:00 FiO2 Intake & Output 12/07/21 12/08/21 12/08/21 18:59 06:59 18:59 Intake Total 1500 650 Balance 1500 650 Intake: Oral 1500 650 Other: Voiding Method Toilet Toilet Toilet External Catheter External Catheter # Voids 1 - Labs CBC & Chem 7: 12/07/21 04:37 12/07/21 04:37
[2021-12-08] MEDS: SENNOSIDES-DOCUSATE SODIUM 1 EACH TAB PO SCH (20:12)
[2021-12-09] MEDS: LACTATED RINGERS 1,000 ML IV SCH ×2 (00:40→13:50)
[2021-12-09] MEDS: HYDROcodone/APAP 7.5-325MG 1 EACH TAB PO PRN ×4 (03:26→22:34)
[2021-12-09] MEDS: LEVOTHYROXINE 100 MCG TAB PO SCH (05:06)
[2021-12-09] MEDS: RIVAROXABAN 10 MG TAB PO SCH (09:16)
[2021-12-09] MEDS: ATORVASTATIN 20 MG TAB PO SCH (09:16)
[2021-12-09] MEDS: ANASTROZOLE 1 MG TAB PO SCH (09:17)
[2021-12-09] MEDS: IMIPRAMINE 25 MG TAB PO SCH ×3 (09:17→21:29)
[2021-12-09 11:39] LABS: Basophils # (A) 0.03 X 10*3/uL (0.00-0.10); Basophils % (A) 0.2 %; Eosinophils # (A) 0.01 X 10*3/uL (0.04-0.35); Eosinophils % (A) 0.1 %; HCT 32.1 % (37.2-46.3); HGB 10.2 g/dL (12.0-15.0); Immature Grans, Automated 0.6 %; Lymphocytes # (A) 1.57 X 10*3/uL (0.90-5.00); Lymphocytes % (A) 12.8 %; MCH 28.1 pg (27.0-32.0); MCHC 31.8 g/dL (32.0-37.0); MCV 88.4 fL (80.0-97.0); Mean Platelet Volume 9.7 fL (9.5-12.2); Monocytes # (A) 1.11 X 10*3/uL (0.20-1.00); NRBC Per 100 WBC 0 /100 WBCS (0.0-0.0); Neutrophils # (A) 9.51 X 10*3/uL (1.80-7.70); Neutrophils % (A) 77.3 %; Platelet Count 176 X 10*3/uL (140-440); RBC 3.63 X 10*6/uL (4.10-5.20); RDW 12.8 % (11.5-14.5)
--- NOTE | 2021-12-09 12:00 | P.PN ---
Subjective Progress Note Date: 12/09/21 Principal diagnosis: Left knee osteoarthritis Patient was seen at bedside this morning resting comfortably sitting up in chair. Patient says she has been up several times walking around the room since surgery using walker. Patient says she does have a history of interstitial cy stitis for which she has great concern for at this time. Patient feels at this time she will need to go to rehab instead of going home. Patient says most of the knee pain she is having is at the front of her knee. Patient denies any radiation of pain. Patient says she has iced the knee on/off. Patient says she has used incentive spirometer yet, which is at bedside. Patient does have a walker for home. Patient says she has walked around the room up and down some steps with therapy. Patient denies chest pain, fever, shortness of breath, nausea, vomiting, change in vision, loss of bowel control. Objective - Vital Signs Vital signs: Vital Signs Temp 98.4 F 12/09/21 07:51 Pulse 77 12/09/21 08:00 Resp 16 12/09/21 08:00 BP 135/78 12/09/21 07:51 Pulse Ox 96 12/09/21 07:51 FiO2 Intake & Output 12/08/21 12/09/21 12/09/21 18:59 06:59 18:59 Intake Total 500 Balance 500 Intake: Oral 500 Other: Voiding Method Toilet Toilet Toilet External Catheter Incontinent Incontinent # Voids 1 - Exam Left knee: Incision is clean, dry, and intact. The exofin fusion tape is in good condition. There is minimal soft tissue swelling and ecchymosis surrounding the medial and lateral aspects of the incision. Calf is soft, no tenderness with palpation. Plantar flexion, dorsiflexion, EHL, FHL are intact. Sensory exam to light touch throughout the extremity is intact, dorsal pedis pulses 2+. - Labs CBC & Chem 7: 12/09/21 06:33 12/07/21 04:37 Assessment and Plan Assessment: 1. Left knee osteoarthritis Postoperative day #3 status post left total knee arthroplasty Plan: 1. Left knee osteoarthritis - surgery performed 12/07/2021 - left total knee arthroplasty. Patient stable at bedside this morning. At this time patient is to continue working with physical therapy. Patient has changed her mind and wants to go to rehab now. Plan for discharge to rehab today versus tomorrow. 2. Appreciate medical management 3. Pain management - [place]; Dilaudid only if necessary 4. DVT prophylaxis - Xarelto; Eliquis 2.5 mg BID x 2 weeks once discharged 5. GI prophylaxis - senna; Colace daily once discharged 6. PT/OT - weightbearing as tolerated with walker 7. Encourage incentive spirometer use 8. Discharge planning - to rehab today versus tomorrow. Time with Patient: Less than 30
--- NOTE | 2021-12-09 12:42 | P.DS ---
Providers Date of admission: 12/07/21 07:34 Expected date of discharge: 12/09/21 Attending physician: Juan C Arcos Consults: 12/06/21 12:20 Consult Physician Routine Consulting Provider: Kevin Macias Consult Reason/Comments: Medical Management s/p left total knee arthroplasty Do you want consulting provider notified?: Yes Primary care physician: Lacy Mejia MD Hospital Course: Date of admission: 12/06/2021 Date of discharge: 12/09/2021 Admission diagnosis: Left knee osteoarthritis Discharge diagnosis: Same Attending physician: Dr. Arcos Surgical procedures: Left total knee arthroplasty Brief history: Patient is a 76-year-old female with a history of progressive primary left knee osteoarthritis. At this point patient has failed conservative treatment measures and has opted to proceed with a elective left total knee arthroplasty. Hospital course: Details of patient's surgery can be found in operative report. Patient tolerated the procedure well and was subsequently transported to orthopedic floor. Patient's orthopeidc and medical care was provided daily. Patient had daily laboratory tests performed for evaluation of overall blood c ounts. Patient had daily physical therapy to include strengthening range of motion as well as education with walker ambulation. Patient was treated with Xarelto for their postoperative DVT prophylaxis during their inpatient stay. Patient was noted to have a relatively uneventful postoperative course. Patient reported satisfactory pain control with oral pain medications by postoperative day 3. Patient showed satisfactory progress with physical therapy. Patient moved steadily through the program and had no difficulty meeting the goals by postoperative day 3. Given patient's otherwise satisfactory course and having met physical therapy goals, plan is to discharge patient to rehab on postoperative day 3. Discharge condition/disposition: Patient will be discharged to rehab in stable condition. Discharge medications: Instructions are given on resumption of patient's normal daily medications per primary care recommendation, in addition patient will be prescribed [place] 7.5 mg/325 mg; Colace; Eliquis 2.5 mg BID x 2 weeks. Discharge instructions: 1. Wound care and infection precautions, keep incision dry and covered while showering, no lotions, creams, moisturizers. No soaking, tubs, pools, hottubs. Do not scrub over the incision. 2. Weight-bear as tolerated with walker / cane until follow-up. 3. Ice and elevate when necessary. Do not exceed 20 minutes per hour with ice pack. 4. Utilize compression sleeve until seen at first follow up appointment. 5. Nursing care. 6. Physical therapy including home CPM. 7. Pain meds and anticoagulants per prescription. 8. Pain medication has potential to cause constipation. Increase oral fluid and fiber intake. Contact primary care provider if you have not had a bowel movement within 48 hours after discharge 9. No anti-inflammatory medication until discussed at first post operative visit, this including Motrin, Aleve, Mobic, Diclofenac. 10. Follow up in office at 2 weeks postop with Faraz Benavidez PA-C / Ashu Wilson PA-C 11. Follow up with your primary care doctor 7-10 days after discharge. 12. Contact [facility] with any questions, . Keep mesh tape on until follow-up appointment in office in 10 days. While showering, cover mesh tape with Saran wrap. Medications:[place] 7.5 mg/325 mg; Colace; Eliquis 2.5 mg BID x 2 weeks. Assessment: Left knee osteoarthritis Procedures: Left total knee arthroplasty Patient Condition at Discharge: Good Plan - Discharge Summary Discharge Rx Participant: Yes New Discharge Prescriptions: New HYDROcodone/APAP 7.5-325MG [[place] 7.5] 1 each PO Q6HR PRN #27 tab PRN Reason: Pain Apixaban [Eliquis] 2.5 mg PO BID #60 tab Docusate [Colace] 100 mg PO DAILY #30 capsule Continue Imipramine [Tofranil] 25 mg PO TID Atorvastatin [Lipitor] 20 mg PO QAM Levothyroxine Sodium [Synthroid] 100 mcg PO MOFR Levothyroxine Sodium [Synthroid] 50 mcg PO SUTUWETHSA Cholecalciferol [Vitamin D3 (25 Mcg = 1000 Iu)] 2,000 units PO QAM Anastrozole 1 mg PO QAM Discharge Medication List Atorvastatin [Lipitor] 20 mg PO QAM 07/05/21 [History] Imipramine [Tofranil] 25 mg PO TID 07/05/21 [History] Levothyroxine Sodium [Synthroid] 50 mcg PO SUTUWETHSA 07/05/21 [History] Anastrozole 1 mg PO QAM 12/01/21 [History] Cholecalciferol [Vitamin D3 (25 Mcg = 1000 Iu)] 2,000 units PO QAM 12/01/21 [History] Levothyroxine Sodium [Synthroid] 100 mcg PO MOFR 12/01/21 [History] Apixaban [Eliquis] 2.5 mg PO BID #60 tab 12/09/21 [Rx] Docusate [Colace] 100 mg PO DAILY #30 capsule 12/09/21 [Rx] HYDROcodone/APAP 7.5-325MG [[place] 7.5] 1 each PO Q6HR PRN #27 tab 12/09/21 [Rx] Follow up Appointment(s)/Referral(s): Ashu Wilson, MARIAJOSE [PHYSICIAN PARKING METER MECHANIC] - 12/22/21 9:40 am [facility],Equipment [NON-STAFF] - As Needed (Continuous Passive Motion knee machine) Moi,Beth Senior [NON-STAFF] - As Needed Lacy Mejia MD [Primary Care Provider] - As Needed Activity/Diet/Wound Care/Special Instructions: Orthopedic Discharge Instructions: 1. Wound care and infection precautions, keep incision dry and covered while showering, no lotions, creams, moisturizers. No soaking, pools, hot tubs. Do not scrub over incision. 2. Weight-bear as tolerated with walker / cane until follow-up. 3. Ice and elevate when necessary. Do not exceed 20 minutes per hour with ice pack. 4. Utilize compression sleeve until seen at first follow up appointment. 5. Pain meds and anticoagulants per prescription. 6. Pain medication has potential to cause constipation. Increase oral fluid and fiber intake. Contact primary care provider if you have not had a bowel movement within 48 hours after discharge. 7. No anti-inflammatory medication until discussed at first post operative visit, this including Motrin, Aleve, Mobic, Diclofenac. 8. Follow up in office at 2 weeks postop with Faraz Benavidez PA-C/Ashu Wilson PA-C 9. Follow up with your primary care doctor 7-10 days after discharge. 10. Contact [facility] with any questions, . Keep mesh tape on until follow-up appointment in office in 10 days. While showering, cover mesh tape with Saran wrap. Medications:[place] 7.5 mg/325 mg; Colace; Eliquis 2.5 mg BID x 2 weeks. Discharge Disposition: TRANSFER TO SNF/ECF
[2021-12-09] MEDS: SENNOSIDES-DOCUSATE SODIUM 1 EACH TAB PO SCH (21:29)
[2021-12-10] MEDS: LEVOTHYROXINE 50 MCG TAB PO SCH (05:56)
[2021-12-10] MEDS: LACTATED RINGERS 1,000 ML IV SCH (06:11)
[2021-12-10] MEDS: HYDROcodone/APAP 7.5-325MG 1 EACH TAB PO PRN ×3 (06:51→20:04)
[2021-12-10] MEDS: ATORVASTATIN 20 MG TAB PO SCH (07:09)
[2021-12-10] MEDS: RIVAROXABAN 10 MG TAB PO SCH (07:09)
[2021-12-10] MEDS: ANASTROZOLE 1 MG TAB PO SCH (07:10)
[2021-12-10] MEDS: IMIPRAMINE 25 MG TAB PO SCH ×3 (07:10→20:04)
--- NOTE | 2021-12-10 08:19 | P.PN ---
Subjective Progress Note Date: 12/10/21 Principal diagnosis: Left knee osteoarthritis Patient was seen at bedside this morning resting comfortably sitting up in chair. Patient says she has been up several times walking around the room since surgery using walker. Patient says she is looking forward to going to rehab. Patient says most of the knee pain she is having is at the front of her knee. Patient denies any radiation of pain. Patient says she has iced the knee on/off. Patient says she has used incentive spirometer. Patient does have a walker for home. Patient says she has walked around the room up and down some steps with therapy. Patient denies chest pain, fever, shortness of breath, nausea, vomiting, change in vision, loss of bowel control. Objective - Vital Signs Vital signs: Vital Signs Temp 98.3 F 12/10/21 07:05 Pulse 74 12/10/21 07:05 Resp 16 12/10/21 07:05 BP 122/78 12/10/21 07:05 Pulse Ox 97 12/10/21 07:05 FiO2 Intake & Output 12/09/21 12/10/21 12/10/21 18:59 06:59 18:59 Intake Total 550 500 Balance 550 500 Intake: Oral 550 500 Other: Voiding Method Toilet Incontinent # Voids 4 2 - Exam Left knee: Incision is clean, dry, and intact. The exofin fusion tape is in good condition. There is minimal soft tissue swelling and ecchymosis surrounding the medial and lateral aspects of the incision. Calf is soft, no tenderness with palpation. Plantar flexion, dorsiflexion, EHL, FHL are intact. Sensory exam to light touch throughout the extremity is intact, dorsal pedis pulses 2+. - Labs CBC & Chem 7: 12/09/21 06:33 12/07/21 04:37 Labs: Abnormal Lab Results - Last 24 Hours (Table) 12/09/21 Range/Units 06:33 WBC 12.30 H (4.50-10.00) X 10*3/uL RBC 3.63 L (4.10-5.20) X 10*6/uL Hgb 10.2 L (12.0-15.0) g/dL Hct 32.1 L (37.2-46.3) % MCHC 31.8 L (32.0-37.0) g/dL Immature Gran # 0.07 H (0.00-0.04) X 10*3/uL Neutrophils # 9.51 H (1.80-7.70) X 10*3/uL Monocytes # 1.11 H (0.20-1.00) X 10*3/uL Eosinophils # 0.01 L (0.04-0.35) X 10*3/uL Assessment and Plan Assessment: 1. Left knee osteoarthritis Postoperative day #4 status post left total knee arthroplasty Plan: 1. Left knee osteoarthritis - surgery performed 12/07/2021 - left total knee arthroplasty. Patient stable at bedside this morning. At this time patient is to continue working with physical therapy. Discharged to rehab today 2. Appreciate medical management 3. Pain management - [place]; Dilaudid only if necessary 4. DVT prophylaxis - Xarelto; Eliquis 2.5 mg BID x 2 weeks once discharged 5. GI prophylaxis - senna; Colace daily once discharged 6. PT/OT - weightbearing as tolerated with walker 7. Encourage incentive spirometer use 8. Discharge planning - to rehab today Time with Patient: Less than 30
[2021-12-10] MEDS: SENNOSIDES-DOCUSATE SODIUM 1 EACH TAB PO SCH (20:04)
[2021-12-10] MEDS: ACETAMINOPHEN TAB 325 MG TAB PO PRN (22:15)
[2021-12-11] MEDS: HYDROcodone/APAP 7.5-325MG 1 EACH TAB PO PRN ×5 (02:17→23:12)
[2021-12-11] MEDS: LACTATED RINGERS 1,000 ML IV SCH (06:05)
[2021-12-11] MEDS: LEVOTHYROXINE 50 MCG TAB PO SCH (06:06)
[2021-12-11] MEDS: ATORVASTATIN 20 MG TAB PO SCH (08:02)
[2021-12-11] MEDS: IMIPRAMINE 25 MG TAB PO SCH ×3 (08:02→21:06)
[2021-12-11] MEDS: ANASTROZOLE 1 MG TAB PO SCH (08:02)
[2021-12-11] MEDS: RIVAROXABAN 10 MG TAB PO SCH (08:02)
--- NOTE | 2021-12-11 09:46 | P.PN ---
Subjective Progress Note Date: 12/11/21 Principal diagnosis: Left knee osteoarthritis Patient was seen at bedside this morning resting comfortably sitting up in chair. Patient says she did walk down the hallway earlier this morning and felt pretty good bearing weight on her left lower extremity. Patient says she is l ooking forward to going to rehab. Patient says most of the knee pain she is having is at the front of her knee. Patient denies any radiation of pain. Patient says she has iced the knee on/off. Patient says she has used incentive spirometer. Patient does have a walker for home. Patient says she has walked around the room up and down some steps with therapy. Patient denies chest pain, fever, shortness of breath, nausea, vomiting, change in vision, loss of bowel control. Objective - Vital Signs Vital signs: Vital Signs Temp 99.4 F 12/11/21 09:09 Pulse 93 12/11/21 08:00 Resp 18 12/11/21 08:00 BP 148/73 12/11/21 08:00 Pulse Ox 97 12/11/21 08:00 FiO2 Intake & Output 12/10/21 12/11/21 12/11/21 18:59 06:59 18:59 Other: Voiding Method Toilet # Voids 2 2 # Bowel Movements 1 - Exam Left knee: Streri strips present over incision. Blistering present near distal aspect of incision. Adaptic, 4x4's, abd and light kerlix wrap placed over incision. Negative for any drainage. Moderate amount ecchymoses present over anterior aspe ct of tibia. Calf is soft, no tenderness with palpation. Plantar flexion, dorsiflexion, EHL, FHL are intact. Sensory exam to light touch throughout the extremity is intact, dorsal pedis pulses 2+. - Labs CBC & Chem 7: 12/09/21 06:33 12/07/21 04:37 Assessment and Plan Assessment: 1. Left knee osteoarthritis Postoperative day #5 status post left total knee arthroplasty Plan: 1. Left knee osteoarthritis - surgery performed 12/07/2021 - left total knee arthroplasty. Patient stable at bedside this morning. Patient says she walked down the hallways this morning and felt pretty good bearing weight on her left lower extremity. Patient is looking forward to being discharged to rehab. Authorization from [employer] was not obtained yesterday. At this time we are recommending lightly wrapped dressing over incision due to blisters. We'll continue daily dressing changes. Patient is stable for discharge to rehab. We will continue to follow while patient is in hospital. 2. Appreciate medical management 3. Pain management - [place]; Dilaudid only if necessary 4. DVT prophylaxis - Xarelto; Eliquis 2.5 mg BID x 2 weeks once discharged 5. GI prophylaxis - senna; Colace daily once discharged 6. PT/OT - weightbearing as tolerated with walker 7. Encourage incentive spirometer use 8. Discharge planning - to rehab when authorization is obtained Time with Patient: Less than 30
[2021-12-11] MEDS: ACETAMINOPHEN TAB 325 MG TAB PO SCH ×2 (11:22→16:55)
[2021-12-11] MEDS: SENNOSIDES-DOCUSATE SODIUM 1 EACH TAB PO SCH (21:06)
[2021-12-11] MEDS: HYDROmorphone 0.5 MG/0.5 ML SYRINGE IVP PRN (21:06)
--- NOTE | 2021-12-11 22:30 | US ---
EXAMINATION TYPE: US venous doppler duplex LE LT DATE OF EXAM: 12/11/2021 10:01 PM COMPARISON: NONE CLINICAL HISTORY: Possible DVT. left leg pain and edema. left knee replacement 12/06/21 SIDE PERFORMED: left TECHNIQUE: The lower extremity deep venous system is examined utilizing real time linear array sonog rush with graded compression, doppler sonography and color-flow sonography. VESSELS IMAGED: Common Femoral Vein Deep Femoral Vein Greater Saphenous Vein * Femoral Vein Popliteal Vein Small Saphenous Vein * Proximal Calf Veins (* superficial vessels) Left Leg: +positive for DVT left popliteal vein IMPRESSION: No evidence of deep vein thrombosis in the left leg.
[2021-12-12] MEDS: ACETAMINOPHEN TAB 325 MG TAB PO SCH ×4 (00:18→18:55)
[2021-12-12] MEDS ORDERED: HEPARIN SODIUM 1,000 UN/ML (10ML VL) IV PRN (00:46)
[2021-12-12] MEDS ORDERED: HEPARIN SODIUM 1,000 UN/ML (10ML VL) IV ONE (00:46)
[2021-12-12] MEDS: HEPARIN SOD,PORK IN 0.45% NACL 25,000 UNIT in 0.45% NACL 1 250ML.BAG IV SCH ×2 (01:39→17:58)
[2021-12-12 01:42] LABS: Basophils % (A) 0 %; Eosinophils # (A) 0.2 k/uL (0-0.7); Eosinophils % (A) 2 %; Lymphocytes # (A) 1.6 k/uL (1.0-4.8); Lymphocytes % (A) 16 %; MCH 29.5 pg (25.0-35.0); MCV 89.3 fL (80.0-100.0); Mean Platelet Volume 7.2; Monocytes # (A) 0.8 k/uL (0-1.0); Monocytes % (A) 8 %; Neutrophils # (A) 7.3 k/uL (1.3-7.7); Neutrophils % (A) 72 %; Platelet Count 265 k/uL (150-450); RBC 3.24 m/uL (3.80-5.40); RDW 12.8 % (11.5-15.5); WBC 10.1 k/uL (3.8-10.6)
[2021-12-12 01:46] LABS: HGB 9.6 gm/dL (11.4-16.0)
[2021-12-12 01:48] LABS: INR 0.9 (<1.2); Partial Thromboplastin Time 27.2 sec (22.0-30.0); Prothrombin Time 10.4 sec (9.0-12.0)
[2021-12-12] MEDS: LEVOTHYROXINE 100 MCG TAB PO SCH (05:08)
[2021-12-12] MEDS: HYDROcodone/APAP 7.5-325MG 1 EACH TAB PO PRN ×3 (05:08→17:21)
[2021-12-12] MEDS: LACTATED RINGERS 1,000 ML IV SCH (05:08)
[2021-12-12] MEDS: IMIPRAMINE 25 MG TAB PO SCH ×3 (07:08→19:29)
[2021-12-12] MEDS: ATORVASTATIN 20 MG TAB PO SCH (07:08)
--- NOTE | 2021-12-12 09:19 | P.PN ---
Subjective Progress Note Date: 12/12/21 Principal diagnosis: Left knee osteoarthritis Patient was seen at bedside this morning lying in semirecumbent position in bed. Patient says she had been doing very well over the past several days and was able to walk up and down the hallway several times. Patient also says she had been doing ankle pumps and exercises while resting each day. However, patient noted yesterday evening she began to feel some increased pain in the backside of her knee and calf. manager line nurse did contact me and venous Doppler of left lower extremity was ordered. Doppler came back positive for DVT of popliteal vein. Patient was started on heparin. Patient also noticed that yesterday ev ening there was increased swelling in her left foot and ankle Patient says she did walk down the hallway several times yesterday and felt good bearing weight on her left lower extremity. Patient says most of the knee pain she is having is still at the front of her knee. Patient denies any radiation of pain. Patient says she has iced the knee on/off. Patient says she has used incentive spirometer. Patient does have a walker for home. Patient says she has walked around the room up and down some steps with therapy. Patient denies chest pain, fever, shortness of breath, nausea, vomiting, change in vision, loss of bowel control. Objective - Vital Signs Vital signs: Vital Signs Temp 98.5 F 12/12/21 07:41 Pulse 85 12/12/21 07:41 Resp 17 12/12/21 07:41 BP 121/78 12/12/21 07:41 Pulse Ox 94 L 12/12/21 07:41 FiO2 Intake & Output 12/11/21 12/12/21 12/12/21 18:59 06:59 18:59 Other: Voiding Method Toilet # Voids 1 # Bowel Movements 1 - Exam Left knee: Streri strips present over incision. Blistering present near distal aspect of incision. Some minimal straw colored drainage present over 4x4's. New dressing consisting of Adaptic, 4x4's, abd and light kerlix wrap placed over incision. Moderate amount ecchymoses present over anterior aspect of tibia. Increased swelling in left foot/ankle vs yesterday. Calf is somewehat taught, with some tenderness with palpation. Plantar flexion, dorsiflexion, EHL, FHL are intact. Sensory exam to light touch throughout the extremity is intact, dorsal pedis pulses 2+. - Labs CBC & Chem 7: 12/12/21 00:59 12/07/21 04:37 Labs: Abnormal Lab Results - Last 24 Hours (Table) 12/12/21 12/12/21 Range/Units 00:59 07:44 RBC 3.24 L (3.80-5.40) m/uL Hgb 9.6 L D (11.4-16.0) gm/dL Hct 29.0 L (34.0-46.0) % APTT 65.9 H (22.0-30.0) sec Assessment and Plan Assessment: 1. Left knee osteoarthritis Postoperative day #6 status post left total knee arthroplasty Plan: 1. Left knee osteoarthritis - surgery performed 12/07/2021 - left total knee arthroplasty. Patient at bedside this morning with daughter. Patient started on heparin due to positive venous doppler of LLE. Kefzol 2 g q8h ordered for infection ppx. Dressing was changed. There was a small amount of straw- colored drainage over Adaptic and 4 x 4's. Blisters over distal aspect of incision appear somewhat larger today, still intact. New dressings were placed over knee. At this time we are recommending lightly wrapped dressing over incision due to blisters. We'll continue daily dressing changes. Patient is stable for discharge to rehab. We will continue to follow while patient is in hospital. 2. Appreciate medical and vascular management 3. Pain management - [place]; Dilaudid only if necessary 4. DVT prophylaxis - Heparin; Eliquis 2.5 mg BID once discharged 5. GI prophylaxis - senna; Colace daily once discharged 6. PT/OT - weightbearing as tolerated with walker 7. Encourage incentive spirometer use 8. Discharge planning - to rehab when authorization is obtained Time with Patient: Less than 30
--- NOTE | 2021-12-12 10:12 | P.PN ---
Progress Note - Text Progress Note Date: 12/12/21 Pt will be seen in morning. Reviewed chart. Here for left knee surgery, course complicated by left knee pain on prophylactic xarelto postop, 10mg daily, doppler consistent with left popliteal vein DVT. This is a provoked DVT and not a failure of DOAC as pt only on prophylactic dose. Agree with heparin drip for now, and further work up or treatment will be provided tomorrow when we see pt.
[2021-12-12] MEDS: ANASTROZOLE 1 MG TAB PO SCH (17:22)
[2021-12-12] MEDS: SENNOSIDES-DOCUSATE SODIUM 1 EACH TAB PO SCH (19:29)
[2021-12-13] MEDS: ACETAMINOPHEN TAB 325 MG TAB PO SCH ×3 (00:23→13:54)
[2021-12-13] MEDS: HYDROcodone/APAP 7.5-325MG 1 EACH TAB PO PRN (04:15)
[2021-12-13] MEDS: LEVOTHYROXINE 50 MCG TAB PO SCH (04:16)
[2021-12-13 07:32] VITALS: RESP 18
[2021-12-13] MEDS: IMIPRAMINE 25 MG TAB PO SCH (07:59)
[2021-12-13] MEDS: ANASTROZOLE 1 MG TAB PO SCH (08:00)
[2021-12-13] MEDS: ATORVASTATIN 20 MG TAB PO SCH (08:02)
[2021-12-13 10:37] LABS: Basophils # (A) 0.04 X 10*3/uL (0.00-0.10); Basophils % (A) 0.4 %; Eosinophils # (A) 0.29 X 10*3/uL (0.04-0.35); HCT 30.2 % (37.2-46.3); HGB 9.6 g/dL (12.0-15.0); Immature Grans, Automated 0.5 %; Lymphocytes # (A) 1.78 X 10*3/uL (0.90-5.00); Lymphocytes % (A) 18.6 %; MCH 28.4 pg (27.0-32.0); MCHC 31.8 g/dL (32.0-37.0); MCV 89.3 fL (80.0-97.0); Mean Platelet Volume 9.3 fL (9.5-12.2); Monocytes # (A) 0.97 X 10*3/uL (0.20-1.00); Monocytes % (A) 10.1 %; NRBC Per 100 WBC 0 /100 WBCS (0.0-0.0); Neutrophils # (A) 6.44 X 10*3/uL (1.80-7.70); Neutrophils % (A) 67.4 %; Platelet Count 279 X 10*3/uL (140-440); RBC 3.38 X 10*6/uL (4.10-5.20); RDW 12.8 % (11.5-14.5); WBC 9.57 X 10*3/uL (4.50-10.00)
[2021-12-13] MEDS ORDERED: APIXABAN 5 MG TAB PO SCH (11:00)
--- NOTE | 2021-12-13 11:10 | P.PN ---
Subjective Progress Note Date: 12/13/21 Patient is a 76-year-old female with dyslipidemia, breast cancer, and hypothyroidism who presented for elective left total knee arthroplasty. She developed bruising and edema in her left leg and doppler was positive for DVT left. Patient seen and examined at bedside. She reports that she is still weak on her leg and has not been walking. She has been doing exercises in bed. She denies chest pain or shortness of breath. General: nontoxic, no distress, appears at stated age Derm: warm, dry Head: atraumatic, normocephalic, symmetric Eyes: EOMI, no lid lag, anicteric sclera Mouth: no lip lesion, mucus membranes moist Cardiovascular: S1S2 reg, no murmur, positive posterior tibial pulse bilateral, Lungs: CTA bilateral, no rhonchi, no rales , no accessory muscle use Ext: no gross muscle atrophy, 2+ edema left leg with bruising , Several bullae over left knee incision C/D/I with patricio inplace, no contractures Neuro: CN II-XI grossly intact, no focal neuro deficits Psych: Alert, oriented, appropriate affect Assessment/plan: A 46-year-old female status post left total knee arthroplasty Acute left lower extremity DVT Recent breast cancer, completed treatment on aromatase inhibitor - Note from heme/onc reviewed not DOAC failure. Will start eliquis BID. Suggest outpatient follow-up with Heme/onc due to recent breast Cancer and anastrazole which has a small side effect of pulmonary Acute blood loss anemia, likely related to surgery -Start oral iron 30 days -Repeat CBC in 1 week, instruction and is to discharge paperwork Leukocytosis, resolved Dyslipidemia -Statin Hypothyroidism -Synthroid Medically optimized for discharge. Ashu notified. Objective - Vital Signs Vital signs: Vital Signs Temp 98.5 F 12/13/21 07:31 Pulse 77 12/13/21 07:31 Resp 18 12/13/21 07:31 BP 134/77 12/13/21 07:31 Pulse Ox 94 L 12/13/21 07:31 FiO2 Intake & Output 12/12/21 12/13/21 12/13/21 18:59 06:59 18:59 Intake Total 490 368.991 Output Total 700 975 Balance -210 -975 368.991 Intake: Intake, IV Titration 250 248.991 Amount Heparin Sod,Pork in 0.45% 250 248.991 NaCl 25,000 unit In 0.45 % NaCl 1 250ml.bag @ 18 UNITS/KG/HR 15.354 mls/hr IV .[id number] [facility] Rx#: [id number] Oral 240 120 Output: Urine 700 975 Other: Voiding Method External Catheter # Voids 1 - Labs CBC & Chem 7: 12/13/21 05:36 12/07/21 04:37 Labs: Abnormal Lab Results - Last 24 Hours (Table) 12/13/21 12/13/21 Range/Units 05:36 05:36 RBC 3.38 L (4.10-5.20) X 10*6/uL Hgb 9.6 L (12.0-15.0) g/dL Hct 30.2 L (37.2-46.3) % MCHC 31.8 L (32.0-37.0) g/dL MPV 9.3 L (9.5-12.2) fL Immature Gran # 0.05 H (0.00-0.04) X 10*3/uL APTT 103.6 H* (22.0-30.0) sec
--- NOTE | 2021-12-13 11:48 | P.PN ---
Subjective Progress Note Date: 12/13/21 Principal diagnosis: Left knee osteoarthritis Patient was seen at bedside this morning lying in semirecumbent position in bed. Patient says she had been doing very well over the past several days and was able to walk up and down the hallway several times. Doppler LLE positive for DVT popliteal vein. Patient has been on heparin for the past couple days and will transition to Eliquis once discharged to rehab. Patient also noticed that some of the swelling in her left foot and ankle has decreased since yesterday. Patient says she did walk down the hallway several times yesterday and felt good bearing weight on her left lower extremity. Patient says most of the knee pain she is having is still at the front of her knee. Patient denies any radiation of pain. Patient says she has iced the knee on/off. Patient says she has used incentive spirometer. Patient does have a walker for home. Patient says she has walked around the room up and down some steps with therapy. Patient denies chest pain, fever, shortness of breath, nausea, vomiting, change in vision, loss of bowel control. Objective - Vital Signs Vital signs: Vital Signs Temp 98.5 F 12/13/21 07:31 Pulse 77 12/13/21 07:31 Resp 18 12/13/21 07:31 BP 134/77 12/13/21 07:31 Pulse Ox 94 L 12/13/21 07:31 FiO2 Intake & Output 12/12/21 12/13/21 12/13/21 18:59 06:59 18:59 Intake Total 490 368.991 Output Total 700 975 Balance -210 -975 368.991 Intake: Intake, IV Titration 250 248.991 Amount Heparin Sod,Pork in 0.45% 250 248.991 NaCl 25,000 unit In 0.45 % NaCl 1 250ml.bag @ 18 UNITS/KG/HR 15.354 mls/hr IV .[id number] [facility] Rx#: [id number] Oral 240 120 Output: Urine 700 975 Other: Voiding Method External Catheter # Voids 1 - Exam Left knee: Streri strips present over incision. Blistering present near distal aspect of incision. Dressing consisting of Adaptic, 4x4's, abd and light kerlix wrap on ncision. Moderate amount ecchymoses present over anterior aspect of tibia. Swelling in left ankle/foot has decreased a bit since yesterday. Calf is somewehat taught, with some tenderness with palpation. Plantar flexion, dorsiflexion, EHL, FHL are intact. Sensory exam to light touch throughout the extremity is intact, dorsal pedis pulses 2+. - Labs CBC & Chem 7: 12/13/21 05:36 12/07/21 04:37 Labs: Abnormal Lab Results - Last 24 Hours (Table) 12/13/21 12/13/21 Range/Units 05:36 05:36 RBC 3.38 L (4.10-5.20) X 10*6/uL Hgb 9.6 L (12.0-15.0) g/dL Hct 30.2 L (37.2-46.3) % MCHC 31.8 L (32.0-37.0) g/dL MPV 9.3 L (9.5-12.2) fL Immature Gran # 0.05 H (0.00-0.04) X 10*3/uL APTT 103.6 H* (22.0-30.0) sec Assessment and Plan Assessment: 1. Left knee osteoarthritis Postoperative day #7 status post left total knee arthroplasty Plan: 1. Left knee osteoarthritis - surgery performed 12/07/2021 - left total knee arthroplasty. Patient at bedside this morning. Patient started on heparin due to positive venous doppler of LLE. Kefzol 2 g q8h ordered for infection ppx. Dressing was changed. There was a small amount of straw-colored drainage over Adaptic and 4 x 4's. Blisters over distal aspect of incision appear somewhat larger today, still intact. New dressings were placed over knee. At this time we are recommending lightly wrapped dressing over incision due to blisters. Continue dressing changes daily once at rehab. Keflex 50 mg QID x 10 days ordered for discharge to rehab for infection ppx. Discharge to rehab today, 12/13/2021 2. Appreciate medical, vascular, oncology management 3. Pain management - [place]; Dilaudid only if necessary 4. DVT prophylaxis - Heparin; Eliquis once discharged to rehab. 5. GI prophylaxis - senna; Colace daily once discharged 6. PT/OT - weightbearing as tolerated with walker 7. Encourage incentive spirometer use 8. Discharge planning - Discharge to rehab today, 12/13/2021 Time with Patient: Less than 30
[2021-12-13] MEDS: HEPARIN SOD,PORK IN 0.45% NACL 25,000 UNIT in 0.45% NACL 1 250ML.BAG IV SCH (12:20)
--- NOTE | 2021-12-13 13:33 | P.CONS ---
History of Present Illness - Reason for Consult Consult date: 12/13/21 DVT on Eliquis - History of Present Illness We were asked to see patient regarding DVT on AC therapy. Patient was found to have DVT on SUB therapeutic prophylaxic dose of DOAC, therefore this is not considered a failure and recommendation plan is for discharge on full dose for 3 months Past Medical History Past Medical History: Cancer, Hearing Disorder / Deafness, Hyperlipidemia, Osteoarthritis (OA), Skin Disorder, Thyroid Disorder Additional Past Medical History / Comment(s): Hard of hearing. Hx right breast cancer - lumpectomy and 5 radiation treatments (last treatment 3 weeks ago). Hypothyroidism, varicose vein, Osteoporosis, Vitiligo. Bladder spasms due to Chronic Interstitial Cystitis. History of Any Multi-Drug Resistant Organisms: None Reported Past Surgical History: Breast Surgery, Cholecystectomy, Hysterectomy Additional Past Surgical History / Comment(s): Hysterectomy with cervix removal (bilateral ovaries retained), bilateral cataract surgery, right breast lumpectomy. Past Anesthesia/Blood Transfusion Reactions: No Reported Reaction Additional Past Anesthesia/Blood Transfusion Reaction / Comm: No blood transfusions to date (12/01/21). Past Psychological History: No Psychological Hx Reported Smoking Status: Never smoker Past Alcohol Use History: None Reported Past Drug Use History: None Reported - Past Family History Father Family Medical History: No Reported History Additional Family Medical History / Comment(s): at age 81 from minor health issues r/t age. Mother Family Medical History: No Reported History Additional Family Medical History / Comment(s): at age 81 from minor health issues r/t age. Medications and Allergies Home Medications Medication Instructions Recorded Confirmed Type Atorvastatin [Lipitor] 20 mg PO QAM 07/05/21 12/01/21 History Imipramine [Tofranil] 25 mg PO TID 07/05/21 12/01/21 History Levothyroxine Sodium [Synthroid] 50 mcg PO SUTUWETHSA 07/05/21 12/01/21 History Anastrozole 1 mg PO QAM 12/01/21 12/01/21 History Cholecalciferol [Vitamin D3 (25 2,000 units PO QAM 12/01/21 12/06/21 History Mcg = 1000 Iu)] Levothyroxine Sodium [Synthroid] 100 mcg PO MOFR 12/01/21 12/01/21 History Docusate [Colace] 100 mg PO DAILY #30 capsule 12/09/21 Rx HYDROcodone/APAP 7.5-325MG [Bivalve 1 each PO Q6HR PRN #27 tab 12/09/21 Rx 7.5] Apixaban [Eliquis] 5 mg PO BID #60 tab 12/13/21 Rx Apixaban [Eliquis] 10 mg PO BID 7 Days tab 12/13/21 Rx Cephalexin [Keflex] 500 mg PO QID 10 Days #40 cap 12/13/21 Rx Ferrous Sulfate [Feosol] 325 mg PO DAILY #30 tab 12/13/21 Rx Allergies Allergy/AdvReac Type Severity Reaction Status Date / Time No Known Allergies Allergy Verified 12/06/21 08:48 Physical Exam Vitals: Vital Signs Temp Pulse Resp BP Pulse Ox 12/13/21 07:31 98.5 F 77 18 134/77 94 L 12/13/21 00:56 98.8 F 78 15 137/84 94 L 12/12/21 19:20 83 16 12/12/21 19:18 99.1 F 83 16 139/85 12/12/21 16:22 98.6 F 86 17 130/79 94 L 12/12/21 14:00 98.2 F 78 17 143/82 97 Intake and Output 12/12/21 12/13/21 12/13/21 22:59 06:59 14:59 Intake Total 370 370.000 Output Total 700 975 Balance -330 -975 370.000 Intake: Intake, IV Titration 250 250.000 Amount Heparin Sod,Pork in 0.45% 250 250.000 NaCl 25,000 unit In 0.45 % NaCl 1 250ml.bag @ 18 UNITS/KG/HR 15.354 mls/hr IV .[id number] [facility] Rx#: [id number] Oral 120 120 Output: Urine 700 975 Other: Voiding Method External Catheter # Voids 1 Results CBC & Chem 7: 12/13/21 05:36 12/07/21 04:37 Labs: Abnormal Lab Results - Last 24 Hours (Table) 12/13/21 12/13/21 Range/Units 05:36 05:36 RBC 3.38 L (4.10-5.20) X 10*6/uL Hgb 9.6 L (12.0-15.0) g/dL Hct 30.2 L (37.2-46.3) % MCHC 31.8 L (32.0-37.0) g/dL MPV 9.3 L (9.5-12.2) fL Immature Gran # 0.05 H (0.00-0.04) X 10*3/uL APTT 103.6 H* (22.0-30.0) sec Assessment and Plan (1) DVT (deep venous thrombosis) Narrative/Plan: Here for left knee surgery, course complicated by left knee pain on prophylactic xarelto postop, 10mg daily, doppler consistent with left popliteal vein DVT. This is a provoked DVT and not a failure of DOAC as pt only on prophylactic dose. Plan for discharge on therapeutic DOAC, confirm no acute Pulmonary Embolism or other thrombolic event and length of therapy recommendations likely 3 months. May follow-up in office in 6-8 weeks to assess for need of hypercoagulable base, however given full picture not mandotory consideration Status: Acute Code(s): I82.409 - ACUTE EMBOLISM AND THOMBOS UNSP DEEP VN UNSP LOWER EXTREMITY SNOMED Code(s): 443742922
[2021-12-13 14:44] VITALS: BP 136/72; PULSE 86; TEMP 98.2
== END 2021-12-13 15:32 | DRG 982 ==
LOC: OR 08:23 → 4SSUR 12:33 → OR 12-07 07:34 → 4SSUR 12-07 07:34 → OBSVTOIN 12-13 07:54
PROVIDERS: ADMIT Orthopaedic Surgery; ATTEND Orthopaedic Surgery
PROC: 0SRD0J9 Replacement of Left Knee Joint with Synthetic Substitute, Cemented, Open Approach (ICD-10-PCS; principal; 2021-12-09)
DX: T81.72XA Complication of vein following a procedure, not elsewhere classified, initial encounter (principal); D62 Acute posthemorrhagic anemia; I82.432 Acute embolism and thrombosis of left popliteal vein; M17.12 Unilateral primary osteoarthritis, left knee; C50.919 Malignant neoplasm of unspecified site of unspecified female breast; E03.9 Hypothyroidism, unspecified; E78.5 Hyperlipidemia, unspecified; H91.90 Unspecified hearing loss, unspecified ear; M81.0 Age-related osteoporosis without current pathological fracture; N30.10 Interstitial cystitis (chronic) without hematuria; Z79.01 Long term (current) use of anticoagulants; Z79.890 Hormone replacement therapy; Z92.3 Personal history of irradiation; L80 Vitiligo; I83.90 Asymptomatic varicose veins of unspecified lower extremity; Z20.822 Contact with and (suspected) exposure to COVID-19; Z90.710 Acquired absence of both cervix and uterus
CPT/HCPCS: 64448; 76942; 80048; 85025; 85610; 85730; 87635; 88305; 88311

== ENCOUNTER → 2022-06-05 | Outpatient (CLI) | payer MEDICARE ==
--- NOTE | 2022-06-05 14:14 | US ---
EXAMINATION TYPE: US venous doppler duplex LE LT DATE OF EXAM: 06/05/2022 1:43 PM COMPARISON: 12/11/2021 CLINICAL HISTORY: Left lower extremity DVT. SIDE PERFORMED: Left TECHNIQUE: The lower extremity deep venous system is examined utilizing real time linear array sonog rush with graded compression, doppler sonography and color-flow sonography. VESSELS IMAGED: Common Femoral Vein Deep Femoral Vein Greater Saphenous Vein * Femoral Vein Popliteal Vein Small Saphenous Vein * Proximal Calf Veins (* superficial vessels) Left Leg: Negative for DVT, Grayscale, color doppler, spectral doppler imaging performed of the deep veins of the lower extremities. There is normal flow, compressibility, vascular waveforms. IMPRESSION: No evidence of deep vein to most of the left lower extremity.
== END | disposition home or self-care (01) ==
LOC: RADUSWWP 13:19
PROVIDERS: ATTEND Internal Medicine Hematology & Oncology
DX: I80.12 Phlebitis and thrombophlebitis of left femoral vein (principal)

== ENCOUNTER 2022-06-16 11:01 | Day surgery (SDC) | payer MEDICARE ==
[2022-06-14 11:12] VITALS: BMI 32.1
[~2022-06-16 11:01] MED LIST changes: -ACETAMINOPHEN TAB 500 MG TAB PO PRN; -DEXAMETHASONE SOD PHOSPHATE 4 MG/ML 1 ML VIAL IV ONE; -HYDROmorphone 0.5 MG/0.5 ML SYRINGE IVP PRN; +LACTATED RINGERS 1,000 ML IV SCH; -MELOXICAM 7.5 MG TAB PO PRN; -MIDAZOLAM 2 MG/2 ML VIAL IV PRN; -ONDANSETRON 4 MG/2 ML VIAL IVP ONE; -TRANEXAMIC ACID IN NACL,ISO-OS 1,000 MG in SALINE 1 100ML.BAG IVPB PRN
[2022-06-16 12:44] VITALS: TEMP 98.1
[2022-06-16] MEDS ORDERED: PROPOFOL 10 MG/ML 20 ML VIAL IV ONE (13:35)
--- NOTE | 2022-06-16 13:52 | P.PCN ---
Date of Procedure: 06/16/22 Procedure(s) Performed: BRIEF HISTORY: Patient is a 76-year-old pleasant white female scheduled for an elective colonoscopy as a part of screening for colon cancer. PROCEDURE PERFORMED: Colonoscopy. PREOPERATIVE DIAGNOSIS: Screening for colon cancer. IV sedation per Anesthesia. PROCEDURE: After informed consent was obtained, the patient, was brought into the endoscopy unit. IV sedation was administered by Anesthesia under continuous monitoring. Digital rectal examination was normal. Initially the Olympus CF-160 flexible video colonoscope was then inserted in the rectum, gradually advanced into the cecum without any difficulty. Careful examination was performed as the scope was gradually being withdrawn. Ileocecal valve and the appendiceal orifice were visualized and appeared normal. Prep was excellent. Mucosa of the cecum, ascending colon, transverse colon, descending colon, sigmoid colon, and rectum appeared normal. Retroflexion was performed in the rectum and no lesions were seen. Scattered sigmoidal diverticulosis. The patient tolerated the procedure well. IMPRESSION: Normal-appearing colon from rectum to cecum with no evidence of colorectal neoplasia . Scattered sigmoidal diverticulosis. RECOMMENDATIONS: Findings of this examination were discussed with the patient as well as a family.. Advised to be a high-fiber diet and take fiber supplements a regular basis.
[2022-06-16 14:11] VITALS: BP 130/82; PULSE 61; RESP 16
== END 2022-06-16 14:43 | disposition home or self-care (01) ==
LOC: ORWHC2ENDO 11:01
PROVIDERS: ATTEND Internal Medicine Gastroenterology
DX: Z12.11 Encounter for screening for malignant neoplasm of colon (principal); K57.30 Diverticulosis of large intestine without perforation or abscess without bleeding; E78.5 Hyperlipidemia, unspecified; E03.9 Hypothyroidism, unspecified; N30.10 Interstitial cystitis (chronic) without hematuria; Z79.891 Long term (current) use of opiate analgesic; Z79.899 Other long term (current) drug therapy
CPT/HCPCS: J2704; G0121

== ENCOUNTER → 2023-07-25 | Outpatient (CLI) | payer MEDICARE ==
--- NOTE | 2023-07-25 15:51 | CT ---
EXAMINATION TYPE: CT chest wo con DATE OF EXAM: 07/25/2023 COMPARISON: None available. HISTORY: Abnormal lung plata. CT DLP: 361.2 mGycm. Automated Exposure Control for Dose Reduction was Utilized. TECHNIQUE: CT scan of the thorax is performed without IV contrast. FINDINGS: LUNGS: There is a calcified granuloma within the right lower lobe. The lungs otherwise appear clear. The lungs are otherwise grossly clear, there is no concerning parenchymal mass or nodule identified. There is no pleural effusion or pneumothorax seen. The tracheobronchial tree is patent. MEDIASTINUM: Lack of IV contrast is noted to limit evaluation for mediastinal and especially hilar ad enopathy. There are no definitive greater than 1 cm hilar or mediastinal lymph nodes. No cardiomega ly or pericardial effusion is seen. There calcified right hilar lymph nodes and subcarinal lymph node s. OTHER: Ossified granulomas are seen within the liver and spleen and the visualized upper abdomen. The gallbladder surgically absent.. IMPRESSION: Evidence of prior granulomatous disease with no acute abnormalities otherwise seen within the chest. Follow-up recommendations for incidental pulmonary nodules are per [employer] or [employer].
== END | disposition home or self-care (01) ==
LOC: RADCTMAIN 14:42
PROVIDERS: ATTEND Family Medicine
DX: R91.8 Other nonspecific abnormal finding of lung field (principal)
CPT/HCPCS: 71250

== ENCOUNTER → 2023-10-19 | Outpatient (CLI) | payer MEDICARE | END | disposition home or self-care (01) | LOC: LABPAT 10:53 | PROVIDERS: ATTEND Orthopaedic Surgery | DX: Z01.812 Encounter for preprocedural laboratory examination (principal); M17.11 Unilateral primary osteoarthritis, right knee; Z22.322 Carrier or suspected carrier of Methicillin resistant Staphylococcus aureus | CPT/HCPCS: 87070 ==

== ENCOUNTER 2023-12-11 05:52 | Observation (INO) | payer MEDICARE ==
--- NOTE | 2023-12-10 08:22 | P.HPOR ---
History of Present Illness H&P Date: 12/10/23 Chief Complaint: Right knee pain Patient is a 78-year-old retired female who presents with progressive right knee pain for the past 2 years worsening recently. She's having diffuse pain with walking and weightbearing activities. She also notes stiffness and giving way. She is having night symptoms. She tried medications in addition to injections without much relief. Review of Systems As per HPI Past Medical History Past Medical History: Cancer, Deep Vein Thrombosis (DVT), Hyperlipidemia, Thyroid Disorder Additional Past Medical History / Comment(s): hypothyroidism , breast cancer, cervical cancer, vitaligo. bladder spasms d/t interstitial cystitis (Takes imipramine 25mg TID) History of Any Multi-Drug Resistant Organisms: None Reported Past Surgical History: Breast Surgery, Cholecystectomy, Hysterectomy, Joint Replacement Additional Past Surgical History / Comment(s): hysterectomy with cervix removal (bilateral ovaries retained) 1983. cataract sx (bilateral) 2009 lft knee replacement, rt breast lumpectomy, Past Anesthesia/Blood Transfusion Reactions: No Reported Reaction Additional Past Anesthesia/Blood Transfusion Reaction / Comment(s): No blood transfusions to date (07/05/21) Smoking Status: Never smoker - Past Family History Father Family Medical History: No Reported History Additional Family Medical History / Comment(s): at age 81 from minor health issues r/t age. Mother Family Medical History: No Reported History Additional Family Medical History / Comment(s): at age 81 from minor health issues r/t age. Medications and Allergies Home Medications Medication Instructions Recorded Confirmed Type Atorvastatin [Lipitor] 20 mg PO QAM 07/05/21 12/06/23 History Imipramine [Tofranil] 25 mg PO TID 07/05/21 12/06/23 History Anastrozole 1 mg PO QAM 12/01/21 12/06/23 History Cholecalciferol [Vitamin D3 (25 2,000 units PO QAM 12/01/21 12/06/23 History Mcg = 1000 Iu)] Ferrous Sulfate [Feosol] 325 mg PO DAILY #30 tab 12/13/21 12/06/23 Rx Acetaminophen Tab [Tylenol] 650 mg PO Q4H PRN 12/06/23 12/06/23 History Alendronate Sodium [Fosamax] 70 mg PO WEEKLY 12/06/23 12/06/23 History Levothyroxine Sodium [Synthroid] 75 mcg PO DAILY 12/06/23 12/06/23 History Phentermine HCl 37.5 mg PO DAILY 12/06/23 12/06/23 History Topiramate 25 mg PO BID 12/06/23 12/06/23 History Allergies Allergy/AdvReac Type Severity Reaction Status Date / Time No Known Allergies Allergy Verified 12/06/23 14:43 Physical Examination - Knee right Appearance: effusion Effusion grade: grade 1 Valgus alignment in stance: 5 degrees Tenderness with palpation: anterior, medial, lateral Pain: throughout ROM Gait: limping ROM: extension: -10 degrees ROM: flexion: 120 degrees Crepitus with motion: Yes Strength: extension: 5/5 Strength: flexion: 5/5 Meniscal tests: medial meniscal tests: positive, lateral meniscal tests: positive, medial joint line pain: positive, lateral joint line pain: positive Results The patient is a well-developed well-nourished female approximately 5 foot 3, 183 pounds of endomorphic habitus. HEENT exam is nonfocal, neck is supple. She has painless passive motion of the right hip. Straight leg raise is negative. She is tender about the medial and lateral joint line of the right knee. Collaterals are stable, Melody was negative, Yo's is equivocal. She has genu valgum alignment. Her distal neurovascular exam appears intact in the right lower extremity. - Diagnostic results Knee x-ray: image reviewed (3 views of the right knee obtained in the office show severe lateral and patellofemoral compartment osteoarthrosis.) Assessment and Plan Assessment: Right knee severe lateral and patellofemoral compartment osteoarthrosis Plan: I talked to the patient at length regarding her condition along with treatment options. At this point she is quite asymptomatic having pain and mechanical symptoms related to her right knee osteoarthrosis despite conservative measures. After a thorough discussion she opts to proceed with surgery. We'll plan proceed with right total knee arthroplasty. Risks and benefits were discussed at length in layman's terms. We will institute DVT prophylaxis postoperative period
[~2023-12-11 05:52] MED LIST changes: -LACTATED RINGERS 1,000 ML IV SCH; -LIDOCAINE 1% (10MG/ML) FOR IV START INTRADERMA PRN; +TRANEXAMIC 1,000 MG/100ML-NACL 1,000 MG in SALINE 1 100ML.BAG IVPB PRN
[2023-12-11] MEDS: IV FLUID CONTINUATION 1,000 ML IV ONE ×2 (06:21→09:18)
[2023-12-11] MEDS: MIDAZOLAM 2 MG/2 ML VIAL IVP ONE (07:00)
[2023-12-11] MEDS ORDERED: MIDAZOLAM 2 MG/2 ML VIAL IV PRN (07:00)
--- NOTE | 2023-12-11 07:27 | P.ANPRN ---
Procedure Note - Anesthesia - Nerve Block Performed Right iPack Single Time Out Performed: Yes Date of Procedure: 12/11/23 Procedure Start Time: 07:00 Procedure Stop Time: 07:05 Location of Patient: PreOp Indication: Acute Post-Operative Pain, Analgesia, Requested by Surgeon Sedation Type: Sedate with meaningful contact maintained Preparation: Sterile Prep Position: Left Lateral Catheter: None Needle Types: Pajunk Needle Gauge: 21 Ultrasound used to visualize needle placement: Yes Ultrasound used to observe medication spread: Yes Injectate: 0.5% Ropivacaine (see comment for volume) ([id number]) Blood Aspirated: No Pain Paresthesia on Injection Noted: No Resistance on Injection: Normal Image Stored and Saved: Yes Events: Uneventful and Well Tolerated
[2023-12-11] MEDS: DEXAMETHASONE SOD PHOSPHATE 4 MG/ML 1 ML VIAL IV ONE (07:29)
[2023-12-11] MEDS: LACTATED RINGERS 1,000 ML IV SCH (07:29)
--- NOTE | 2023-12-11 07:29 | P.ANPRN ---
Procedure Note - Anesthesia - Nerve Block Performed Right Adductor Canal Infusion Time Out Performed: Yes Date of Procedure: 12/11/23 Procedure Start Time: : Procedure Stop Time: 07:11 Location of Patient: PreOp Indication: Acute Post-Operative Pain, Analgesia, Requested by Surgeon Sedation Type: Sedate with meaningful contact maintained Preparation: Sterile Prep Position: Supine Catheter: Indwelling Needle Types: On-Q Ultrasound used to visualize needle placement: Yes Ultrasound used to observe medication spread: Yes Injectate: 0.5% Ropivacaine (see comment for volume) ([id number]) Blood Aspirated: No Pain Paresthesia on Injection Noted: No Resistance on Injection: Normal Image Stored and Saved: Yes Events: Uneventful and Well Tolerated
[2023-12-11] MEDS: ACETAMINOPHEN TAB 500 MG TAB PO PRN (07:30)
[2023-12-11] MEDS: ONDANSETRON 4 MG/2 ML VIAL IVP ONE (07:30)
[2023-12-11] MEDS: MELOXICAM 7.5 MG TAB PO PRN (07:30)
[2023-12-11] MEDS ORDERED: LIDOCAINE 1% INJ 10MG/ML (20 ML MDV) ONE (07:34)
[2023-12-11] MEDS ORDERED: MIDAZOLAM 2 MG/2 ML VIAL ONE (07:34)
[2023-12-11] MEDS ORDERED: PROPOFOL 10 MG/ML 20 ML VIAL IV ONE (07:34)
[2023-12-11] MEDS ORDERED: ROPIVACAINE 5 MG/ML 30 ML VIAL ONE (07:34)
[2023-12-11] MEDS ORDERED: TRANEXAMIC 1,000 MG/100ML-NACL PREMIX BAG ONE (07:34)
[2023-12-11] MEDS ORDERED: KETAMINE HCL IN 0.9 % NACL 50 MG/5 ML SYRINGE ONE (07:34)
[2023-12-11] MEDS ORDERED: DEXAMETHASONE SOD PHOSPHATE 4 MG/ML 1 ML VIAL ONE (07:34)
[2023-12-11] MEDS: ceFAZolin 3,000 MG in SODIUM CHLORIDE 0.9% IRRIGATIO 3,000 ML IRRIGATION ONE (08:09)
--- NOTE | 2023-12-11 09:32 | P.OP ---
Date of Procedure: 12/11/23 Preoperative Diagnosis: Right knee severe tricompartmental osteoarthrosis Postoperative Diagnosis: Same Procedure(s) Performed: Right total knee arthroplastycementedposterior stabilized Implants: Depuy Attune size 5 narrow cemented femoral component, size 5 cemented tibial component, 10 mm articular surface, 32 mm cemented patellar component. This is a posterior stabilized implant. Anesthesia: regional, spinal Surgeon: Juan C Arcos Electro Optics Engineer #1: Ashu Wilson Estimated Blood Loss (ml): 50 Pathology: none sent Condition: stable Disposition: PACU Indications for Procedure: The patient is a 78-year-old female who presents with progressive right knee pain secondary to osteoarthrosis despite conservative measures. A discussion of the risks and benefits of operative intervention versus continued conservative measures was made with the patient. She opted to proceed with surgery. Operative risks include infection, neurovascular injury, development of blood clots, fracture, possible component loosening/failure and possible need for subsequent procedures was discussed. Informed consent was obtained. Operative Findings: As below Description of Procedure: The patient was brought to the operating room, and after induction of spinal anesthesia the right lower extremity was prepped and draped in a normal fashion. The tourniquet was inflated to 270 mm marker. A longitudinal incision extending 3 finger breaths above the superior pole of patella extending to the medial aspect the tibial tubercle was then made. The skin and subcutaneous tissues were divided sharply. Electrocautery was used for hemostasis. A medial parapatellar arthrotomy was performed. The medial soft tissues to include the superficial and deep portions of the medial collateral ligament were elevated subperiosteally. The patella was everted. A portion of the retropatellar fat pad was excised sharply. The anterior cruciate ligament was sacrificed. Blunt retractors were placed. A starting hole was made in the distal femur 1 cm anterior to the posterior cruciate ligament origin. An intramedullary femoral guide was then inserted planning on 5 valgus distal cut with 9 mm distal resection. The cutting block was pinned in place. The distal cut was then made. The posterior referencing sizing guide was utilized. I felt size 5 narrow was most appropriate. 3 of external rotation was built into the system and verified off the trans-epicondylar axis and the posterior condyles. The cutting block was pinned in place. The anterior, posterior, and chamfer cuts then made. Bone fragments were removed. The intercondylar guide was placed and the notch cut was made with a sagittal saw. The bone block was removed in one fragment. The trial component was then placed. There is good anterior to posterior and medial to lateral fit. The distal peg holes were drilled. The trial component was removed. Attention was then paid towards preparing the proximal tibia. An extra medullary guide was utilized in line with the tibial shaft and second metatarsal distally. I planned on 4 mm resection from the medial compartment. The cutting block was pinned in place. The proximal tibial cut was then made. The bone was removed in one fragment. The remnants of the medial and lateral menisci were excised at the capsular junction with electrocautery. The tibia sized most appropriately at size 5. The trial femoral and tibial components were placed along with a 10 mm articular surface. I was able to obtain full flexion and extension with internal and external rotation. After several flexion and extension cycles, the tibial rotation was marked with electrocautery line with the medial one third of the tibial tubercle. Attention was then paid towards preparing the patella. A patella reamer was utilized taking stem to 14 mm of bone stock. A good flush cut was made. The patella sized most appropriately 32 mm. The peg holes were drilled. The trial components placed. I had good patellofemoral tracking with no hands technique. The trial components were then removed. The tibia was prepared in the appropriate rotation with appropriate drill and keel punch. The posterior osteophytes were removed with a curved osteotome. The flexion and extension gaps were checked and felt to be symmetric at 10 mm. A trial components were then removed. The bony surfaces were prepared with pulsatile lavage and dried. The tibial component was then cemented place was fully seated. Excess cement was removed. The femoral component cemented place and was fully seated. Excess cement was removed. The trial 10 mm articular surface was placed and the knee was put in full extension. The patella component was cemented place. After the cement had sufficiently hardened, the knee was again taken through a range of motion. Again I was able to obtain full flexion and extension with varus and valgus stress. The trial 10 mm articular surface was removed and the final one inserted. This was fully seated. Care was taken to avoid any soft tissue interposition. Pulsatile lavage was again utilized. The medial parapatellar arthrotomy was closed with #2 Ethibond suture. The tourniquet was deflated with approximately 60 minutes total tourniquet time. Final hemostasis was obtained with the cautery. There was minimal bleeding therefore a deep drain was not placed. The subcutaneous tissues were reapproximated with interrupted 2-0 Vicryl sutures. The skin was reapproximated with 3-0 subcuticular strata fix suture. Skin tape and adhesive was applied. A sterile dressing was applied. The patient was awoken from sedation and transferred to recovery room in good condition. Blood loss was estimated at 50 mL. No complications were incurred. Sponge and needle counts were correct at the end of the case. Ashu PALOMARES assisted during the major components of this case to include exposure, bone resection, implantation, and closure.
[2023-12-11] MEDS: ROPIVACAINE 1,100 MG, SODIUM CHLORIDE 0.9% 500 ML 330 ML, EMPTY PAIN BALL 1 EACH MISCELLANE PRN (09:49)
[2023-12-11] MEDS: HYDROmorphone 0.5 MG/0.5 ML SYRINGE IVP PRN ×2 (09:52→22:31)
--- NOTE | 2023-12-11 09:57 | XR ---
EXAMINATION TYPE: XR knee limited RT DATE OF EXAM: 12/11/2023 COMPARISON: NONE TECHNIQUE: Two views submitted HISTORY: Post op FINDINGS: There is a prosthetic knee in near anatomic alignment. There is soft tissue edema and soft tissue e mphysema. Linear radiopaque density overlying the medial soft tissues of the upper thigh correlate cl inically. IMPRESSION: 1. Postoperative change.
[2023-12-11] MEDS ORDERED: MAGNESIUM HYDROXIDE 2,400 MG/30 ML CUP PO PRN (11:56)
[2023-12-11] MEDS ORDERED: HYDROmorphone 0.5 MG/0.5 ML SYRINGE IVP PRN (11:56)
[2023-12-11] MEDS ORDERED: NALOXONE 0.4 MG/ML 1 ML VIAL IV PRN (11:56)
[2023-12-11] MEDS: HYDROcodone/APAP 5-325MG 1 EACH TAB PO PRN (14:58)
--- NOTE | 2023-12-11 15:17 | P.CONS ---
History of Present Illness - Reason for Consult Consult date: 12/11/23 Medical Management Requesting physician: Juan C Arcos - History of Present Illness History of Presenting Illness: Patient is a pleasant 78-year-old female past medical history of hypothyroidism, hyperlipidemia, interstitial cystitis with bladder spasms on Tofranil for management, breast cancer status post lumpectomy, cervical cancer status post hysterectomy, history of DVT and osteoarthrosis. She was currently admitted under orthopedic surgery team status post elective right total knee arthroplasty. Surgical procedure completed by Dr. Arcos secondary to severe right knee tricompartmental osteoarthrosis. We were consulted for postsurgical medical management. Patient seen and fully evaluated upon arrival to room 455. Patient reports currently postoperative pain is mild to moderate and currently denies any other complaints. Patient reports she is tolerating clear liquid diet and has had no episodes of postoperative nausea or vomiting. Patient reports she has not yet urinated since completion of surgical procedure and does have history of bladder spasms with interstitial cystitis, but currently denies any complaints. Patient denies having any recent infections or exposure to known ill contacts, fevers, chills, headache, lightheadedness, dizziness, chest pain, palpitations, shortness of breath, cough or congestion, or any other complaints at this time. Review of systems: Pertinent positives and negatives as discussed in HPI, a complete review of systems was performed and all other systems are negative. Physical exam: Vital signs reviewed and stable. General: Nontoxic, no distress and appears stated age. Derm: Skin warm and dry, normal coloration for ethnicity. Head: Atraumatic, normocephalic and symmetric. Eyes: EOMs intact, no lid lag, and anicteric sclera Mouth: no lip lesions, mucus membranes moist Cardiovascular: regular rate and rhythm with normal S1S2, no murmur, positive posterior tibial pulses bilaterally, and cap refill < 2 seconds. Lungs: Respirations even, regular, and unlabored on room air. Lungs CTA bilaterally, no rhonchi, no rales, no wheezing, and no accessory muscle usage. Abdominal: soft, nontender to palpation, no guarding, no appreciable organomegaly Ext: No gross muscle atrophy, no edema, no contractures. Movement and sensation intact. Right lower extremity with postsurgical dressing/Clemente wrap i ntact. Neuro: Speech clear, face symmetrical and CN II-XII grossly intact with no noted focal neuro deficits Psych: Alert and oriented to person, place, time, and situation. Appropriate and pleasant affect. Assessment and Plan of Care: Status post right total knee arthroplasty Severe right knee tricompartmental osteoarthrosis Management per primary admitting orthopedic surgery team including DVT prophylaxis, pain management, wound/dressing management, weightbearing, and PT/OT. Currently DVT prophylaxis with Xarelto 10 mg daily. Postoperative bradycardia -Patient asymptomatic of bradycardia. -Per preoperative clearance scanned into computer, patient's EKG was reported to show normal sinus rhythm. Patient has had postoperative bradycardia with heart rate documented as low as 48 bpm. -Order placed for telemetry monitoring and an EKG as well as TSH with reflex free T4. Postoperative urinary retention History of interstitial cystitis with chronic bladder spasms Continue Tofranil 25 mg 3 times daily. Order placed for bladder management, for bladder scans to monitor for postvoid residual/retention. Hypothyroidism Continue daily medication regimen with levothyroxine 75 mcg daily. Hyperlipidemia Continue atorvastatin 20 mg daily. History of DVT Recommend DVT prophylaxis for minimum of 30 days postop and patient currently on DVT prophylaxis with Xarelto 10 mg daily. Data and imaging reviewed: Reviewed operative note and preoperative labs showing preoperative hemoglobin of 14.1 Vital signs reviewed. Blood pressure 132/75, heart rate 58, respiratory rate 18, temp 98.4 F, and SpO2 of 97% on room air. Thank you for allowing us to participate in the care of this pleasant patient. Do not hesitate to contact us with questions. Someone can be reached from the [facility] group all hours of the day at [phone] or via Bit9. Patient was seen independently by Nurse Practitioner. This document was prepared using [employer] dictation software. Please allow for errors in administrative support technician while rare they do occur. Pablo Hernandez NP rendered care for this patient independently, reviewed the findings and plan as documented in the note above. I did not physically speak with or examine the patient on this date. Past Medical History Past Medical History: Cancer, Deep Vein Thrombosis (DVT), Hyperlipidemia, Thyroid Disorder Additional Past Medical History / Comment(s): hypothyroidism , breast cancer, cervical cancer, vitaligo. bladder spasms d/t interstitial cystitis (Takes imipramine 25mg TID) History of Any Multi-Drug Resistant Organisms: None Reported Past Surgical History: Breast Surgery, Cholecystectomy, Hysterectomy, Joint Replacement Additional Past Surgical History / Comment(s): hysterectomy with cervix removal (bilateral ovaries retained) 1983. cataract sx (bilateral) 2009 lft knee replacement, rt breast lumpectomy, Past Anesthesia/Blood Transfusion Reactions: No Reported Reaction Additional Past Anesthesia/Blood Transfusion Reaction / Comm: No blood transfusions to date (07/05/21) Smoking Status: Never smoker - Past Family History Father Family Medical History: No Reported History Additional Family Medical History / Comment(s): at age 81 from minor health issues r/t age. Mother Family Medical History: No Reported History Additional Family Medical History / Comment(s): at age 81 from minor health issues r/t age. Medications and Allergies Home Medications Medication Instructions Recorded Confirmed Type Atorvastatin [Lipitor] 20 mg PO QAM 07/05/21 12/11/23 History Imipramine [Tofranil] 25 mg PO TID 07/05/21 12/11/23 History Anastrozole 1 mg PO QAM 12/01/21 12/11/23 History Cholecalciferol [Vitamin D3 (25 2,000 units PO QAM 12/01/21 12/11/23 History Mcg = 1000 Iu)] Ferrous Sulfate [Feosol] 325 mg PO DAILY #30 tab 12/13/21 12/11/23 Rx Acetaminophen Tab [Tylenol] 650 mg PO Q4H PRN 12/06/23 12/11/23 History Alendronate Sodium [Fosamax] 70 mg PO WEEKLY 12/06/23 12/11/23 History Levothyroxine Sodium [Synthroid] 75 mcg PO DAILY 12/06/23 12/11/23 History Phentermine HCl 37.5 mg PO DAILY 12/06/23 12/11/23 History Topiramate 25 mg PO BID 12/06/23 12/11/23 History Allergies Allergy/AdvReac Type Severity Reaction Status Date / Time No Known Allergies Allergy Verified 12/06/23 14:43 Physical Exam Vitals: Vital Signs Temp Pulse Resp BP Pulse Ox 12/11/23 13:30 60 16 134/76 94 L 12/11/23 12:30 56 L 16 140/64 98 12/11/23 12:01 55 L 16 145/68 96 12/11/23 11:30 58 L 16 137/65 96 12/11/23 11:00 53 L 16 124/61 95 12/11/23 10:30 52 L 16 131/64 96 12/11/23 10:15 48 L 16 131/66 100 12/11/23 10:00 48 L 16 124/68 100 12/11/23 09:45 49 L 16 124/68 100 12/11/23 09:31 96.8 F L 53 L 16 143/68 98 12/11/23 07:15 59 L 16 132/74 96 12/11/23 06:40 97.2 F L 74 18 145/79 96 Intake and Output 12/10/23 12/11/23 12/11/23 22:59 06:59 14:59 Intake Total 300 1351 Output Total 50 Balance 300 1301 Intake: IV 300 1351 Output: Estimated Blood Loss 50 Other: Weight 80.9 kg
[2023-12-11] MEDS: IMIPRAMINE 25 MG TAB PO SCH (16:15)
[2023-12-11] MEDS: TOPIRAMATE 25 MG TAB PO SCH (20:03)
[2023-12-11] MEDS: SENNOSIDES-DOCUSATE SODIUM 1 EACH TAB PO SCH (20:03)
[2023-12-12] MEDS: LEVOTHYROXINE 75 MCG TAB PO SCH (05:49)
[2023-12-12] MEDS: HYDROcodone/APAP 7.5-325MG 1 EACH TAB PO PRN (05:49)
[2023-12-12] MEDS: CHOLECALCIFEROL 25 MCG (1000 IU) TABLET PO SCH (07:23)
[2023-12-12] MEDS: FERROUS SULFATE 325 MG TAB PO SCH (07:23)
[2023-12-12] MEDS: ATORVASTATIN 20 MG TAB PO SCH (07:23)
[2023-12-12] MEDS: RIVAROXABAN 10 MG TAB PO SCH (07:23)
[2023-12-12] MEDS: ANASTROZOLE 1 MG TAB PO SCH (07:24)
--- NOTE | 2023-12-12 08:57 | P.PN ---
Subjective Progress Note Date: 12/12/23 Hospital course: Patient is a pleasant 78-year-old female past medical history of hypothyroidism, hyperlipidemia, interstitial cystitis with bladder spasms on Tofranil for management, breast cancer status post lumpectomy, cervical cancer status post hysterectomy, history of DVT and osteoarthrosis. She was currently admitted under orthopedic surgery team status post elective right total knee arthroplasty. Surgical procedure completed on 12/11/[address] Arcos secondary to severe right knee tricompartmental osteoarthrosis. We were consulted for postsurgical medical management. Physical exam: Patient was seen and fully evaluated at bedside this morning. She was sitting up in the chair and appeared to be doing well. Patient reports moderate postoperative pain currently rating 6 out of 10 to right knee. Patient continues to deny having any postoperative nausea or vomiting and is urinating without any difficulties. Patient denies any other complaints including headache, lightheadedness, dizziness, chest pain, palpitations, or shortness of breath. She reports she has been using her incentive spirometer as discussed. Vital signs reviewed and stable. General: Nontoxic, no distress and appears stated age. Derm: Skin warm and dry, normal coloration for ethnicity. Head: Atraumatic, normocephalic and symmetric. Eyes: EOMs intact, no lid lag, and anicteric sclera Mouth: no lip lesions, mucus membranes moist Cardiovascular: regular rate and rhythm with normal S1S2, no murmur, positive posterior tibial pulses bilaterally, and cap refill < 2 seconds. Lungs: Respirations even, regular, and unlabored on room air. Lungs CTA bilaterally, no rhonchi, no rales, no wheezing, and no accessory muscle usage. Abdominal: soft, nontender to palpation, no guarding, no appreciable organomegaly Ext: No gross muscle atrophy, no edema, no contractures. Movement and sensation intact. Right lower extremity with postsurgical dressing/Clemente wrap intact. Neuro: Speech clear, face symmetrical and CN II-XII grossly intact with no noted focal neuro deficits Psych: Alert and oriented to person, place, time, and situation. Appropriate and pleasant affect. Assessment and Plan of Care: Acute postoperative blood loss anemia Postoperative leukocytosis -Stable and expected finding. Preoperative hemoglobin 14.1 with postoperative hemoglobin of 11.4. No active bleeding at this time, no need for transfusion or further interventions at this time. -Mild leukocytosis with WBC count of 14.75, reactive secondary to surgical procedure no signs of infection and no need for further intervention. Postoperative bradycardia, resolved. -Patient asymptomatic of bradycardia. -EKG reviewed showing sinus bradycardia at 54 bpm with no significant T wave or ST abnormalities showing no signs of acute ischemia upon personal review and interpretation. -TSH was normal findings at 0.563. Status post right total knee arthroplasty Severe right knee tricompartmental osteoarthrosis Management per primary admitting orthopedic surgery team including DVT prophylaxis, pain management, wound/dressing management, weightbearing, and PT/OT. Currently DVT prophylaxis with Xarelto 10 mg daily. Postoperative urinary retention, resolved. History of interstitial cystitis with chronic bladder spasms Continue Tofranil 25 mg 3 times daily. Continue bladder management, for bladder scans to monitor for postvoid re sidual/retention. Hypothyroidism Continue daily medication regimen with levothyroxine 75 mcg daily. Hyperlipidemia Continue atorvastatin 20 mg daily. History of DVT Recommend DVT prophylaxis for minimum of 30 days postop and patient currently on DVT prophylaxis with Xarelto 10 mg daily. Data and imaging reviewed: Postoperative labs reviewed. CBC showing leukocytosis with WBC count of 14.75 and acute postoperative blood loss anemia with hemoglobin stable at 11.4. BMP was unremarkable. Magnesium normal findings at 2.0. TSH also normal findings at 0.563. Vital signs reviewed. Blood pressure 111/70, heart rate 60, respiratory rate 18, temp 98.0 F, and SpO2 of 96% on room air. Patient is cleared from medical perspective for discharge once cleared by primary admitting orthopedic surgery team, patient awaiting placement in SNF. Thank you for allowing us to participate in the care of this pleasant patient. Do not hesitate to contact us with questions. Someone can be reached from the [facility] hospitalist group all hours of the day at [phone] or via linkedü. Patient was seen independently by Nurse Practitioner. This document was prepared using [employer] dictation software. Please allow for errors in supervisor cooperage shop while rare they do occur. . Pablo Hernandez NP rendered care for this patient independently, reviewed the findings and plan as documented in the note above. I did not physically speak with or examine the patient on this date. Objective - Vital Signs Vital signs: Vital Signs Temp 98.0 F 12/12/23 07:18 Pulse 60 12/12/23 07:18 Resp 18 12/12/23 07:18 BP 111/70 12/12/23 07:18 Pulse Ox 96 12/12/23 07:18 FiO2 Intake & Output 12/11/23 12/12/23 12/12/23 18:59 06:59 18:59 Intake Total 1351 Output Total 400 600 Balance 951 -600 Weight 80.9 kg Intake: IV 1351 Output: Urine 350 600 Estimated Blood Loss 50 Other: Voiding Method Toilet Toilet External Catheter External Catheter # Voids 1 - Labs CBC & Chem 7: 12/12/23 05:52 12/12/23 05:52
[2023-12-12 09:02] LABS: Basophils # (A) 0.02 X 10*3/uL (0.00-0.10); Basophils % (A) 0.1 %; Eosinophils # (A) 0 X 10*3/uL (0.04-0.35); Eosinophils % (A) 0 %; HCT 35.7 % (37.2-46.3); HGB 11.4 g/dL (12.0-15.0); Lymphocytes # (A) 1.56 X 10*3/uL (0.90-5.00); Lymphocytes % (A) 10.6 %; MCH 28.4 pg (27.0-32.0); MCHC 31.9 g/dL (32.0-37.0); Mean Platelet Volume 9.2 FL (9.5-12.2); Monocytes # (A) 1.41 X 10*3/uL (0.20-1.00); Monocytes % (A) 9.6 %; NRBC Per 100 WBC 0 X 10*3/uL (0.00-0.01); Neutrophils # (A) 11.67 X 10*3/uL (1.80-7.70); Neutrophils % (A) 79.1 %; Platelet Count 202 X 10*3/uL (140-440); RBC 4.01 X 10*6/uL (4.10-5.20); RDW 13.2 % (11.5-14.5); WBC 14.75 X 10*3/uL (4.50-10.00)
[2023-12-12 09:12] LABS: BUN/Creat Ratio 21.11 Ratio (12.00-20.00); Calcium 8.4 mg/dL (8.7-10.3); Carbon Dioxide 22.1 mmol/L (21.6-31.8); Chloride 107 mmol/L (96-109); Glucose 116 mg/dL (70-110); Potassium 4.6 mmol/L (3.5-5.5); Sodium 140 mmol/L (135-145)
--- NOTE | 2023-12-12 13:32 | P.PN ---
Subjective Progress Note Date: 12/12/23 Principal diagnosis: Right knee osteoarthritis Patient was seen at bedside this morning sitting up in chair with legs elevated and dressing present over right knee. Patient says she did work with therapy this morning and did okay but did have some difficulty under her own power putting weight on the right lower extremity and performing stairs. Patient says she is hoping to go to rehab upon discharge from the hospital. assistant center manager currently working on rehab placement. Patient says she has urinated since surgery yesterday without issue. Patient says when she does go home she does have a walker. Patient says she has not had a bowel yet, however, patient says she has been passing gas. Patient denies chest pain, fever, shortness of breath, nausea,, change in vision, loss of bowel/bladder control. Objective - Vital Signs Vital signs: Vital Signs Temp 98.0 F 12/12/23 07:18 Pulse 60 12/12/23 07:18 Resp 18 12/12/23 07:18 BP 111/70 12/12/23 07:18 Pulse Ox 96 12/12/23 07:18 FiO2 Intake & Output 12/11/23 12/12/23 12/12/23 18:59 06:59 18:59 Intake Total 1351 Output Total 400 600 Balance 951 -600 Weight 80.9 kg Intake: IV 1351 Output: Urine 350 600 Estimated Blood Loss 50 Other: Voiding Method Toilet Toilet External Catheter External Catheter # Voids 1 - Exam Right knee: Incision is clean, dry, and intact. The exofin fusion tape is in good condition. There is minimal soft tissue swelling and ecchymosis surrounding the medial and lateral aspects of the incision. Calf is soft, no tenderness with palpation. Plantar flexion, dorsiflexion, EHL, FHL are intact. Sensory exam to light touch throughout the extremity is intact, dorsal pedis pulses 2+. - Labs CBC & Chem 7: 12/12/23 05:52 12/12/23 05:52 Labs: Abnormal Lab Results - Last 24 Hours (Table) 12/12/23 12/12/23 Range/Units 05:52 05:52 WBC 14.75 H (4.50-10.00) X 10*3/uL RBC 4.01 L (4.10-5.20) X 10*6/uL Hgb 11.4 L (12.0-15.0) g/dL Hct 35.7 L (37.2-46.3) % MCHC 31.9 L (32.0-37.0) g/dL MPV 9.2 L (9.5-12.2) FL Immature Gran # 0.09 H (0.00-0.04) X 10*3/uL Neutrophils # 11.67 H (1.80-7.70) X 10*3/uL Monocytes # 1.41 H (0.20-1.00) X 10*3/uL Eosinophils # 0 L (0.04-0.35) X 10*3/uL BUN/Creatinine Ratio 21.11 H (12.00-20.00) Ratio Glucose 116 H (70-110) mg/dL Calcium 8.4 L (8.7-10.3) mg/dL Assessment and Plan Assessment: 1. Right knee osteoarthritis -Postop day 1 status post right total knee arthroplasty Plan: 1. Right knee osteoarthritis -right total knee arthroplasty performed yesterday, 12/11/2023. Patient stable at bedside morning with dressing present over right knee. Pain medication and PT/OT daily. Plan for discharge to rehab on Sunday. 2. Appreciate medical management 3. Pain management -[place] 4. DVT prophylaxis -Xarelto in hospital 5. GI prophylaxis -senna 6. PT/OT -weightbearing as tolerated with walker 7. Encourage incentive spirometer use 8. Discharge planning -discharge to rehab on Sunday Time with Patient: Less than 30
--- NOTE | 2023-12-12 19:14 | P.PN ---
Progress Note - Text 12/12/23 642am 78-year-old female status post total knee replacement. Patient has an On-Q pump for postop pain control. 8 cc an hour with a VAS of 4. Dressing clean dry and intact. Plan to continue On-Q pump infusion
--- NOTE | 2023-12-13 07:10 | P.PN ---
Subjective Progress Note Date: 12/13/23 Principal diagnosis: Right knee osteoarthritis Patient was seen at bedside this morning sitting up in bed with dressing present over right knee. Patient says she did work with therapy yesterday and did okay but did have some difficulty under her own power putting weight on the right lower extremity and performing stairs. Patient says she is hoping to go to rehab upon discharge from the hospital. Patient says she has urinated since surgery yesterday without issue. Patient says when she does go home she does have a walker. Patient says she has not had a bowel movement yet, however, patient says she has been passing gas. Patient denies chest pain, fever, shortness of breath, nausea,, change in vision, loss of bowel/bladder control. Objective - Vital Signs Vital signs: Vital Signs Temp 98.3 F 12/13/23 02:23 Pulse 80 12/13/23 02:23 Resp 18 12/13/23 02:23 BP 133/81 12/13/23 02:23 Pulse Ox 96 12/13/23 02:23 FiO2 Intake & Output 12/12/23 12/13/23 12/13/23 18:59 06:59 18:59 Output Total 300 Balance -300 Output: Urine 300 Other: Voiding Method Toilet Toilet External Catheter External Catheter # Voids 2 - Exam Right knee: Incision is clean, dry, and intact. The exofin fusion tape is in good condition. There is minimal soft tissue swelling and ecchymosis surrounding the medial and lateral aspects of the incision. Calf is soft, no tenderness with palpation. Plantar flexion, dorsiflexion, EHL, FHL are intact. Sensory exam to light touch throughout the extremity is intact, dorsal pedis pulses 2+. - Labs CBC & Chem 7: 12/12/23 05:52 12/12/23 05:52 Labs: Abnormal Lab Results - Last 24 Hours (Table) 12/12/23 12/12/23 Range/Units 05:52 05:52 WBC 14.75 H (4.50-10.00) X 10*3/uL RBC 4.01 L (4.10-5.20) X 10*6/uL Hgb 11.4 L (12.0-15.0) g/dL Hct 35.7 L (37.2-46.3) % MCHC 31.9 L (32.0-37.0) g/dL MPV 9.2 L (9.5-12.2) FL Immature Gran # 0.09 H (0.00-0.04) X 10*3/uL Neutrophils # 11.67 H (1.80-7.70) X 10*3/uL Monocytes # 1.41 H (0.20-1.00) X 10*3/uL Eosinophils # 0 L (0.04-0.35) X 10*3/uL BUN/Creatinine Ratio 21.11 H (12.00-20.00) Ratio Glucose 116 H (70-110) mg/dL Calcium 8.4 L (8.7-10.3) mg/dL Assessment and Plan Assessment: 1. Right knee osteoarthritis -Postop day 2 status post right total knee arthroplasty Plan: 1. Right knee osteoarthritis -right total knee arthroplasty performed 12/11/2023. Patient stable at bedside morning with dressing present over right knee. Pain medication and PT/OT daily. Plan for discharge to rehab tmrw. 2. Appreciate medical management 3. Pain management -[place] 4. DVT prophylaxis -Xarelto in hospital 5. GI prophylaxis -senna 6. PT/OT -weightbearing as tolerated with walker 7. Encourage incentive spirometer use 8. Discharge planning -discharge to rehab tmrw Time with Patient: Less than 30
--- NOTE | 2023-12-13 14:10 | P.PN ---
Subjective Progress Note Date: 12/13/23 Hospital course: Patient is a pleasant 78-year-old female past medical history of hypothyroidism, hyperlipidemia, interstitial cystitis with bladder spasms on Tofranil for management, breast cancer status post lumpectomy, cervical cancer status post hysterectomy, history of DVT and osteoarthrosis. She was currently admitted under orthopedic surgery team status post elective right total knee arthroplasty. Surgical procedure completed on 12/11/[address] Arcos secondary to severe right knee tricompartmental osteoarthrosis. We were consulted for postsurgical medical management. Physical exam: Patient was seen and fully evaluated at bedside this morning. Resting in bed. She reports having a rough night with an episode of uncontrolled pain but currently reports pain is tolerable and controlled with current medication regimen. Patient tolerating diet and denies any complaints of nausea and vomiting. She reports urinating per normal but does report constipation. Vital signs reviewed and stable. General: Nontoxic, no distress and appears stated age. Derm: Skin warm and dry, normal coloration for ethnicity. Head: Atraumatic, normocephalic and symmetric. Eyes: EOMs intact, no lid lag, and anicteric sclera Mouth: no lip lesions, mucus membranes moist Cardiovascular: regular rate and rhythm with normal S1S2, no murmur, positive posterior tibial pulses bilaterally, and cap refill < 2 seconds. Lungs: Respirations even, regular, and unlabored on room air. Lungs CTA bilater ally, no rhonchi, no rales, no wheezing, and no accessory muscle usage. Abdominal: soft, nontender to palpation, no guarding, no appreciable organomegaly Ext: No gross muscle atrophy, no edema, no contractures. Movement and sensation intact. Right lower extremity with postsurgical dressing/Clemente wrap intact. Neuro: Speech clear, face symmetrical and CN II-XII grossly intact with no noted focal neuro deficits Psych: Alert and oriented to person, place, time, and situation. Appropriate and pleasant affect. Assessment and Plan of Care: Acute postoperative blood loss anemia Postoperative leukocytosis -Stable and expected finding. Preoperative hemoglobin 14.1 with postoperative hemoglobin of 11.4. No active bleeding at this time, no need for transfusion or further interventions at this time. -Mild leukocytosis with WBC count of 14.75, reactive secondary to surgical procedure no signs of infection and no need for further intervention. Postoperative bradycardia, resolved. -Patient asymptomatic of bradycardia. -EKG reviewed showing sinus bradycardia at 54 bpm with no significant T wave or ST abnormalities showing no signs of acute ischemia upon personal review and interpretation. -TSH was normal findings at 0.563. Constipation Order placed for lactulose 30 g p.o. x 1 dose and patient to continue with daily bowel regimen with Senokot 2 tablets nightly and MiraLAX 17 g daily Status post right total knee arthroplasty Severe right knee tricompartmental osteoarthrosis Management per primary admitting orthopedic surgery team including DVT prophylaxis, pain management, wound/dressing management, weightbearing, and PT/OT. Currently DVT prophylaxis with Xarelto 10 mg daily. Postoperative urinary retention, resolved. History of interstitial cystitis with chronic bladder spasms Continue Tofranil 25 mg 3 times daily. Continue bladder management, for bladder scans to monitor for postvoid residual/retention. Hypothyroidism Continue daily medication regimen with levothyroxine 75 mcg daily. Hyperlipidemia Continue atorvastatin 20 mg daily. History of DVT Recommend DVT prophylaxis for minimum of 30 days postop and patient currently on DVT prophylaxis with Xarelto 10 mg daily. Data and imaging reviewed: Postoperative labs reviewed. CBC showing leukocytosis with WBC count of 14.75 and acute postoperative blood loss anemia with hemoglobin stable at 11.4. BMP w as unremarkable. Magnesium normal findings at 2.0. TSH also normal findings at 0.563. Vital signs reviewed. Blood pressure 118/75, heart rate 88, respiratory rate 18, temp 98.3 F, and SpO2 of 93% on room air Patient is cleared from medical perspective for discharge once cleared by primary admitting orthopedic surgery team, patient awaiting placement in SNF. Thank you for allowing us to participate in the care of this pleasant patient. Do not hesitate to contact us with questions. Someone can be reached from the [facility] hospitalist group all hours of the day at [phone] or via Vers[employer]. Patient was seen independently by Nurse Practitioner. This document was prepared using [employer] dictation software. Please allow for errors in dirt bike racer while rare they do occur. Pablo Hernandez NP rendered care for this patient independently, reviewed the findings and plan as documented in the note above. I did not physically speak with or examine the patient on this date. Objective - Vital Signs Vital signs: Vital Signs Temp 98.3 F 12/13/23 02:23 Pulse 80 12/13/23 02:23 Resp 18 07/04/24 02:23 BP 133/81 12/13/23 02:23 Pulse Ox 96 12/13/23 02:23 FiO2 Intake & Output 12/12/23 12/13/23 12/13/23 18:59 06:59 18:59 Output Total 300 Balance -300 Output: Urine 300 Other: Voiding Method Toilet Toilet External Catheter External Catheter # Voids 2 - Labs CBC & Chem 7: 12/12/23 05:52 12/12/23 05:52 Labs: Abnormal Lab Results - Last 24 Hours (Table) 12/12/23 12/12/23 Range/Units 05:52 05:52 WBC 14.75 H (4.50-10.00) X 10*3/uL RBC 4.01 L (4.10-5.20) X 10*6/uL Hgb 11.4 L (12.0-15.0) g/dL Hct 35.7 L (37.2-46.3) % MCHC 31.9 L (32.0-37.0) g/dL MPV 9.2 L (9.5-12.2) FL Immature Gran # 0.09 H (0.00-0.04) X 10*3/uL Neutrophils # 11.67 H (1.80-7.70) X 10*3/uL Monocytes # 1.41 H (0.20-1.00) X 10*3/uL Eosinophils # 0 L (0.04-0.35) X 10*3/uL BUN/Creatinine Ratio 21.11 H (12.00-20.00) Ratio Glucose 116 H (70-110) mg/dL Calcium 8.4 L (8.7-10.3) mg/dL
[2023-12-13] MEDS: LACTULOSE 20 GM/30 ML CUP PO ONE (15:43)
[2023-12-14 08:19] VITALS: BP 131/75; PULSE 84; RESP 16; TEMP 98
[2023-12-14] MEDS: polyethylene glycoL 3350 17 GM POWD.PACK PO SCH (08:29)
[2023-12-14 08:40] LABS: Basophils # (A) 0.03 X 10*3/uL (0.00-0.10); Basophils % (A) 0.3 %; Eosinophils # (A) 0.12 X 10*3/uL (0.04-0.35); Eosinophils % (A) 1.1 %; HCT 32.6 % (37.2-46.3); HGB 10.5 g/dL (12.0-15.0); Lymphocytes # (A) 2.23 X 10*3/uL (0.90-5.00); Lymphocytes % (A) 19.9 %; MCH 28.8 pg (27.0-32.0); MCHC 32.2 g/dL (32.0-37.0); MCV 89.3 FL (80.0-97.0); Mean Platelet Volume 9.7 FL (9.5-12.2); Monocytes # (A) 1.17 X 10*3/uL (0.20-1.00); Monocytes % (A) 10.4 %; NRBC Per 100 WBC 0 X 10*3/uL (0.00-0.01); Neutrophils # (A) 7.65 X 10*3/uL (1.80-7.70); Platelet Count 177 X 10*3/uL (140-440); RBC 3.65 X 10*6/uL (4.10-5.20); RDW 13.4 % (11.5-14.5); WBC 11.23 X 10*3/uL (4.50-10.00)
[2023-12-14 09:02] LABS: BUN/Creat Ratio 13.29 Ratio (12.00-20.00); Blood Urea Nitrogen 9.3 mg/dL (9.0-27.0); Calcium 7.9 mg/dL (8.7-10.3); Carbon Dioxide 21.7 mmol/L (21.6-31.8); Chloride 107 mmol/L (96-109); Glucose 106 mg/dL (70-110); Magnesium 1.9 mg/dL (1.5-2.4); Potassium 4.2 mmol/L (3.5-5.5); Sodium 138 mmol/L (135-145)
--- NOTE | 2023-12-14 09:13 | P.DS ---
Providers Date of admission: 12/11/23 11:38 Expected date of discharge: 12/14/23 Attending physician: Juan C Arcos Consults: 12/11/23 11:56 Consult Physician Routine Consulting Provider: Elmo Patel Consult Reason/Comments: medical management s/p right total knee arthroplasty Do you want consulting provider notified?: Yes Primary care physician: Demarco Loyola Hospital Course: Date of admission: 12/11/2023 Date of discharge: 12/14/2023 Admission diagnosis: Right knee osteoarthritis Discharge diagnosis: Same Attending physician: Dr. Arcos Surgical procedures: Right total knee arthroplasty Brief history: Patient is a 78-year-old female with a history of progressive primary right knee osteoarthritis. At this point patient has failed conservative treatment measures and has opted to proceed with a elective right total knee arthroplasty. Hospital course: Details of patient's surgery can be found in operative report. Patient tolerated the procedure well and was subsequently transported to orthopedic floor. Patient's orthopeidc and medical care was provided daily. Patient had daily laboratory tests performed for evaluation of overall blood counts. Patient had daily physical therapy to include strengthening range of motion as well as education with walker ambulation. Patient was treated with Xarelto for their postoperative DVT prophylaxis during their inpatient stay. Patient was noted to have a relatively uneventful postoperative course. Patient reported satisfactory pain control with oral pain medications by postoperative day 3. Patient showed satisfactory progress with physical therapy. Patient moved steadily through the program and had no difficulty meeting the goals by postoperative day 3. Given patient's otherwise satisfactory course and having met physical therapy goals, plan is to discharge patient to rehab on postoperative day 3. Discharge condition/disposition: Patient will be discharged to rehab in stable condition. Discharge medications: Instructions are given on resumption of patient's normal daily medications per primary care recommendation, in addition patient will be prescribed [place]; senna; Eliquis. Discharge instructions: 1. Wound care and infection precautions, keep incision dry and covered while showering, no lotions, creams, moisturizers. No soaking, tubs, pools, hottubs. Do not scrub over the incision. 2. Weight-bear as tolerated with walker / cane until follow-up. 3. Ice and elevate when necessary. Do not exceed 20 minutes per hour with ice pack. 4. Utilize compression sleeve until seen at first follow up appointment. 5. Visiting nursing care. 6. Home physical therapy including home CPM. 7. Pain meds and anticoagulants per prescription. 8. Pain medication has potential to cause constipation. Increase oral fluid and fiber intake. Contact primary care provider if you have not had a bowel movement within 48 hours after discharge 9. No anti-inflammatory medication until discussed at first post operative visit, this including Motrin, Aleve, Mobic, Diclofenac. 10. Follow up in office at 2 weeks postop with Faraz Benavidez PA-C / Ashu Wilson PA-C 11. Follow up with your primary care doctor 7-10 days after discharge. 12. Contact [facility] with any questions, . Assessment: Right knee osteoarthritis Procedures: Right total knee arthroplasty Patient Condition at Discharge: Good Plan - Discharge Summary Discharge Rx Participant: Yes New Discharge Prescriptions: New Apixaban [Eliquis] 2.5 mg PO BID #60 tab Sennosides/Docusate Sodium [Senna Plus 8.6-50 mg Softgel] 1 each PO DAILY #20 capsule HYDROcodone/APAP 5-325MG [[place] 5-325] 1 - 2 tab PO Q6HR PRN #36 tab PRN Reason: Pain Continue Imipramine [Tofranil] 25 mg PO TID Atorvastatin [Lipitor] 20 mg PO QAM Acetaminophen Tab [Tylenol] 650 mg PO Q4H PRN PRN Reason: Pain Topiramate 25 mg PO BID Cholecalciferol [Vitamin D3 (25 Mcg = 1000 Iu)] 2,000 units PO QAM Anastrozole 1 mg PO QAM Ferrous Sulfate [Feosol] 325 mg PO DAILY #30 tab Levothyroxine Sodium [Synthroid] 75 mcg PO DAILY Alendronate Sodium [Fosamax] 70 mg PO WEEKLY Phentermine HCl 37.5 mg PO DAILY Discharge Medication List Atorvastatin [Lipitor] 20 mg PO QAM 07/05/21 [History] Imipramine [Tofranil] 25 mg PO TID 07/05/21 [History] Anastrozole 1 mg PO QAM 12/01/21 [History] Cholecalciferol [Vitamin D3 (25 Mcg = 1000 Iu)] 2,000 units PO QAM 12/01/21 [History] Ferrous Sulfate [Feosol] 325 mg PO DAILY #30 tab 12/13/21 [Rx] Acetaminophen Tab [Tylenol] 650 mg PO Q4H PRN 12/06/23 [History] Alendronate Sodium [Fosamax] 70 mg PO WEEKLY 12/06/23 [History] Levothyroxine Sodium [Synthroid] 75 mcg PO DAILY 12/06/23 [History] Phentermine HCl 37.5 mg PO DAILY 12/06/23 [History] Topiramate 25 mg PO BID 12/06/23 [History] Apixaban [Eliquis] 2.5 mg PO BID #60 tab 12/12/23 [Rx] HYDROcodone/APAP 5-325MG [[place] 5-325] 1 - 2 tab PO Q6HR PRN #36 tab 12/12/23 [Rx] Sennosides/Docusate Sodium [Senna Plus 8.6-50 mg Softgel] 1 each PO DAILY #20 capsule 12/12/23 [Rx] Follow up Appointment(s)/Referral(s): Ashu Wilson, PAC [PHYSICIAN SHIP PILOT DISPATCHER] - 12/27/23 10:20 am Patient Instructions/Handouts: Knee Replacement (DC), Knee Replacement (GEN) Activity/Diet/Wound Care/Special Instructions: Orthopedic Discharge Instructions: 1. Wound care and infection precautions, keep incision dry and covered while showering, no lotions, creams, moisturizers. No soaking, pools, hot tubs. Do not scrub over incision. 2. Weight-bear as tolerated with walker / cane until follow-up. 3. Ice and elevate when necessary. Do not exceed 20 minutes per hour with ice pack. 4. Utilize compression sleeve until seen at first follow up appointment. 5. Pain meds and anticoagulants per prescription. 6. Pain medication has potential to cause constipation. Increase oral fluid and fiber intake. Contact primary care provider if you have not had a bowel movement within 48 hours after discharge. 7. No anti-inflammatory medication until discussed at first post operative visit, this including Motrin, Aleve, Mobic, Diclofenac. 8. Follow up in office at 2 weeks postop with Faraz Benavidez PA-C / Ashu Wilson PA-C 9. Follow up with your primary care doctor 7-10 days after discharge. 10. Contact [facility] with any questions, . Keep incision clean, dry, intact. While showering, cover fusion tape with Saran wrap. Keep fusion tape on until follow-up appointment in office in 2 weeks. Discharge Disposition: TRANSFER TO SNF/ECF
--- NOTE | 2023-12-14 12:04 | P.PN ---
Subjective Progress Note Date: 12/14/23 Principal diagnosis: Right knee osteoarthritis Patient was seen at bedside this morning sitting up in bed with dressing present over right knee. Patient says she did work with therapy yesterday and did okay but did have some difficulty under her own power putting weight on the right lower extremity and performing stairs. Patient says she is hoping to go to rehab upon discharge from the hospital. Patient says she has urinated since surgery without issue. Patient says when she does go home she does have a walker. Patient says she did have a bowel movement. Patient denies chest pain, fever, shortness of breath, nausea,, change in vision, loss of bowel/bladder control. Objective - Vital Signs Vital signs: Vital Signs Temp 98.0 F 12/14/23 08:00 Pulse 84 12/14/23 08:00 Resp 16 12/14/23 08:00 BP 131/75 12/14/23 08:00 Pulse Ox 94 L 12/14/23 08:00 FiO2 Intake & Output 12/13/23 12/14/23 12/14/23 18:59 06:59 18:59 Intake Total 240 280 Output Total 700 Balance -460 280 Intake: Intake, IV Titration 240 Amount Lactated Ringers 1,000 ml 240 @ 20 mls/hr IV .Q24H [facility] Rx#:[id number] Oral 280 Output: Urine 700 Other: Voiding Method Toilet Toilet Toilet External Catheter External Catheter External Catheter # Voids 2 # Bowel Movements 4 - Exam Right knee: Incision is clean, dry, and intact. The exofin fusion tape is in good condition. There is minimal soft tissue swelling and ecchymosis surrounding the medial and lateral aspects of the incision. Calf is soft, no tenderness with palpation. Plantar flexion, dorsiflexion, EHL, FHL are intact. Sensory exam to light touch throughout the extremity is intact, dorsal pedis pulses 2+. - Labs CBC & Chem 7: 12/14/23 05:32 12/14/23 05:32 Labs: Abnormal Lab Results - Last 24 Hours (Table) 12/14/23 12/14/23 Range/Units 05:32 05:32 WBC 11.23 H (4.50-10.00) X 10*3/uL RBC 3.65 L (4.10-5.20) X 10*6/uL Hgb 10.5 L (12.0-15.0) g/dL Hct 32.6 L (37.2-46.3) % Monocytes # 1.17 H (0.20-1.00) X 10*3/uL Calcium 7.9 L (8.7-10.3) mg/dL Assessment and Plan Assessment: 1. Right knee osteoarthritis -Postop day 3 status post right total knee arthroplasty Plan: 1. Right knee osteoarthritis -right total knee arthroplasty performed 12/11/2023. Patient stable at bedside morning with dressing present over right knee. Pain medication and PT/OT daily. Plan for discharge to rehab today 2. Appreciate medical management 3. Pain management -[place] 4. DVT prophylaxis -Xarelto in hospital 5. GI prophylaxis -senna 6. PT/OT -weightbearing as tolerated with walker 7. Encourage incentive spirometer use 8. Discharge planning -discharge to rehab today Time with Patient: Less than 30
--- NOTE | 2023-12-14 13:51 | P.PN ---
Subjective Progress Note Date: 12/14/23 Hospital course: Patient is a pleasant 78-year-old female past medical history of hypothyroidism, hyperlipidemia, interstitial cystitis with bladder spasms on Tofranil for management, breast cancer status post lumpectomy, cervical cancer status post hysterectomy, history of DVT and osteoarthrosis. She was currently admitted under orthopedic surgery team status post elective right total knee arthroplasty. Surgical procedure completed on 12/11/[address] Arcos secondary to severe right knee tricompartmental osteoarthrosis. We were consulted for postsurgical medical management. Physical exam: Patient was seen and fully evaluated at bedside this morning. She was sitting up in chair at bedside. Appears to be doing well. She is postoperative day 3. She reports full resolution of constipation and denies any other complaints at this time. Vital signs reviewed and stable. General: Nontoxic, no distress and appears stated age. Derm: Skin warm and dry, normal coloration for ethnicity. Head: Atraumatic, normocephalic and symmetric. Eyes: EOMs intact, no lid lag, and anicteric sclera Mouth: no lip lesions, mucus membranes moist Cardiovascular: regular rate and rhythm with normal S1S2, no murmur, positive posterior tibial pulses bilaterally, and cap refill < 2 seconds. Lungs: Respirations even, regular, and unlabored on room air. Lungs CTA bilaterally, no rhonchi, no rales, no wheezing, and no accessory muscle usage. Abdominal: soft, nontender to palpation, no guarding, no appreciable organomegaly Ext: No gross muscle atrophy, no edema, no contractures. Movement and sensation intact. Right lower extremity with postsurgical dressing/Clemente wrap intact. Neuro: Speech clear, face symmetrical and CN II-XII grossly intact with no noted focal neuro deficits Psych: Alert and oriented to person, place, time, and situation. Appropriate and pleasant affect. Assessment and Plan of Care: Acute postoperative blood loss anemia Postoperative leukocytosis -Stable and expected finding. Preoperative hemoglobin 14.1 with postoperative hemoglobin of 11.4. No active bleeding at this time, no need for transfusion or further interventions at this time. -Mild leukocytosis with WBC count of 14.75, reactive secondary to surgical procedure no signs of infection and no need for further intervention. Postoperative bradycardia, resolved. -Patient asymptomatic of bradycardia. -EKG reviewed showing sinus bradycardia at 54 bpm with no significant T wave or ST abnormalities showing no signs of acute ischemia upon personal review and interpretation. -TSH was normal findings at 0.563. Constipation Resolved. Patient to continue with daily bowel regimen with Senokot 2 tablets nightly and MiraLAX 17 g daily Status post right total knee arthroplasty Severe right knee tricompartmental osteoarthrosis Management per primary admitting orthopedic surgery team including DVT prophylaxis, pain management, wound/dressing management, weightbearing, and PT/OT. Currently DVT prophylaxis with Xarelto 10 mg daily. Postoperative urinary retention, resolved. History of interstitial cystitis with chronic bladder spasms Continue Tofranil 25 mg 3 times daily. Continue bladder management, for bladder scans to monitor for postvoid residual/retention. Hypothyroidism Continue daily medication regimen with levothyroxine 75 mcg daily. Hyperlipidemia Continue atorvastatin 20 mg daily. History of DVT Recommend DVT prophylaxis for minimum of 30 days postop and patient currently on DVT prophylaxis with Xarelto 10 mg daily. Data and imaging reviewed: Morning labs reviewed.. CBC showing leukocytosis with WBC count of 11.23, and postoperative blood loss anemia with hemoglobin stable at 10.5. BMP unremarkable. Magnesium normal findings at 1.9. Vital signs reviewed. Blood pressure 131/75, heart rate 84, respiratory rate 16, temp 98.0 F, and SpO2 of 94% on room air. Patient is cleared from medical perspective for discharge once cleared by [facility] admitting orthopedic surgery team, patient awaiting placement in SNF. Thank you for allowing us to participate in the care of this pleasant patient. Do not hesitate to contact us with questions. Someone can be reached from the [facility] hospitalist group all hours of the day at [phone] or via perfect serve. Patient was seen independently by Nurse Practitioner. This document was prepared using [employer] dictation software. Please allow for errors in incising machine operator while rare they do occur. Pablo Hernandez NP rendered care for this patient independently, reviewed the findings and plan as documented in the note above. I did not physically speak with or examine the patient on this date. Objective - Vital Signs Vital signs: Vital Signs Temp 98.0 F 12/14/23 08:00 Pulse 84 12/14/23 08:00 Resp 16 12/14/23 08:00 BP 131/75 12/14/23 08:00 Pulse Ox 94 L 12/14/23 08:00 FiO2 Intake & Output 12/13/23 12/14/23 12/14/23 18:59 06:59 18:59 Intake Total 240 280 Output Total 700 Balance -460 280 Intake: Intake, IV Titration 240 Amount Lactated Ringers 1,000 ml 240 @ 20 mls/hr IV .Q24H [facility] Rx#:[id number] Oral 280 Output: Urine 700 Other: Voiding Method Toilet Toilet Toilet External Catheter External Catheter External Catheter # Voids 2 # Bowel Movements 4 - Labs CBC & Chem 7: 12/14/23 05:32 12/14/23 05:32 Labs: Abnormal Lab Results - Last 24 Hours (Table) 12/14/23 Range/Units 05:32 WBC 11.23 H (4.50-10.00) X 10*3/uL RBC 3.65 L (4.10-5.20) X 10*6/uL Hgb 10.5 L (12.0-15.0) g/dL Hct 32.6 L (37.2-46.3) % Monocytes # 1.17 H (0.20-1.00) X 10*3/uL
== END 2023-12-14 15:17 ==
LOC: OR 05:52 → 4SSUR 09:25 → OR 11:38 → 4SSUR 11:38
PROVIDERS: ADMIT Orthopaedic Surgery; ATTEND Orthopaedic Surgery
DX: M17.11 Unilateral primary osteoarthritis, right knee (principal); D62 Acute posthemorrhagic anemia; N99.89 Other postprocedural complications and disorders of genitourinary system; R33.8 Other retention of urine; I97.191 Other postprocedural cardiac functional disturbances following other surgery; R00.1 Bradycardia, unspecified; D72.829 Elevated white blood cell count, unspecified; E03.9 Hypothyroidism, unspecified; E78.5 Hyperlipidemia, unspecified; N30.10 Interstitial cystitis (chronic) without hematuria; K59.00 Constipation, unspecified; N32.89 Other specified disorders of bladder; Z79.83 Long term (current) use of bisphosphonates; Z79.890 Hormone replacement therapy; Z79.811 Long term (current) use of aromatase inhibitors; Z79.899 Other long term (current) drug therapy; Z85.41 Personal history of malignant neoplasm of cervix uteri; Z86.718 Personal history of other venous thrombosis and embolism; Z85.3 Personal history of malignant neoplasm of breast; Z90.710 Acquired absence of both cervix and uterus
CPT/HCPCS: 27447; 93005; 97116; 97530 ×2; 97161; 97166; 64999; 64448; 80048 ×2; 84443; 83735 ×2; 85025 ×2; 73560; G0378 ×3; C1713 ×2; C1776; C1751; J2250; J1100; J0690 ×3; J2405; J2001; S0170 ×3; J2795; J2704; J1170 ×3